=== PATIENT | female | born 1945 | race Caucasian/White ===

== ENCOUNTER 2016-04-22 14:23 | Emergency (ER) | payer MEDICARE, OTHER ==
[~2016-04-22] VITALS: Ht 157.5 cm; Wt 84.1 kg
[~2016-04-22 14:23] MED LIST: ALPR0.254 PO; AMT50T PO; Aspirin-Expunged Drug, Do Not Renew! PO; CHOL5000 PO; DULO60CA42 PO; ESTR0.5T; GLUC-180 PO; HYDR-3797 PO; L.AC1CAP6 PO; LIP40 PO; MULT-1018 PO; OXYC5TAB72 PO; PREG150C PO; PROC10TA PO; PROP60CA2 PO; TOLT4CAP13 PO; TOPI-31 PO
[2016-04-22 14:26] VITALS: BP 77/49; PULSE 78; RESP 16; O2SAT 98
--- NOTE | 2016-04-22 14:39 | ED.REPORT ---
HPI-Abd Pain F 40 and Over Date of Service Apr 22, 2016 ED Provider: Juan Luciano MD Patient is a 70 year old female who presents to the ED complaining of a rectal prolapse that was noted on 04/02/16 during an abdominal surgery. Her and her have tried to put it back in multiple times but it continually comes back out. Associated symptoms include headache. She denies vomiting, diarrhea, fever, or any other symptoms. She has been in contact with [facility] about having surgery for it but she can no longer stand the pain and came to the ED. She has had to take increasing amounts of her pain medication to manage her rectal pain. She has taken 2 Vicodin today with her last dose at 1300. Nursing Notes Stated Complaint: RECTAL PROLAPSE PAIN Chief Complaint: Female Abdominal Pain Nursing Notes Reviewed: Yes Allergies: Coded Allergies: No Known Allergies (Verified , 07/06/04) Scheduled ([Aspirin-Expunged Drug, Do Not Renew!]) 325 MG TABLET 325 MG PO BID Amitriptyline (Amitriptyline) 50 Mg Tab 35-50 MG PO HS Atorvastatin (Lipitor) 40 Mg Tablet 40 MG PO DAILY Cholecalciferol (Vitamin D3) (Vitamin D3) 5,000 Unit Capsule 5,000 UNIT PO DAILY Duloxetine (Cymbalta) 60 Mg Capsule.dr 60 MG PO DAILY Estradiol (Estradiol) 0.5 Mg Tablet 0.5 MG DAILY Glucosamine/MSM/Chondroitin A (Glucosamine Chondroit MSM Tab) 1 Each Tablet 1 EACH PO DAILY L.acidoph & Paracasei,B.lactis (Probiotic) 10 Billion Cell Capsule 1 EACH PO DAILY Multivitamin (Multi Vitamin Daily) 1 Each Tablet 1 EACH PO DAILY Pregabalin (Lyrica) 150 Mg Capsule 150 MG PO BID Propranolol ER (Propranolol ER) 60 Mg Cap.sa.24h 120 MG PO DAILY Tolterodine Tartrate ER (Tolterodine Tartrate ER) 4 Mg Capsule 4 MG PO DAILY Topiramate (Topiramate) 100 Mg Tablet 150 MG PO BID Scheduled PRN Alprazolam (Alprazolam) 0.25 Mg Tablet 0.25 MG PO TID PRN PRN For Anxiety Hydroxyzine Pamoate (HydrOXYzine Pamoate) 25 Mg Capsule 0 MG PO Q4H PRN PRN For Restlessness Prochlorperazine Maleate (Prochlorperazine) 10 Mg Tablet 10 MG PO Q8 PRN PRN For Nausea/Vomiting oxyCODONE (oxyCODONE) 5 Mg Tablet 5-10 MG PO Q3H PRN PRN For Severe Pain General Time Seen by MD: 14:39 Chief Complaint Other (Rectal pain) Hx Obtained From: Patient, Spouse Arrived By: Walk-in Sudden in Onset?: No Recent Healthcare: Previous surgery Past Medical History Past Medical History Seizures, 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 Neurologic: Reports: Headache Physical Exam Vital Signs Vital Signs (First) Date Time Temp Pulse Resp B/P Pulse Ox O2 Delivery O2 Flow Rate FiO2 04/22/16 14:26 35.8 78 16 77/49 98 Room Air Initial VS: Reviewed Head / Eyes: Atraumatic, Normocephalic Skin: Warm, Dry Psychiatric: Mood/affect normal, Behavior normal, Normal thought content General/Constitutional: Awake, Alert, Well developed Respiratory / Chest: No respiratory distress Abdomen: Soft Back: Inspection NL Rectum / Perineum Abnl: Positive: Rectal prolapse present Neurologic: Oriented X3, Speech NL At base-line patient has L arm and leg paralysis Re-Eval/Medical Decision Re-Evaluation/Progress #1: Time of Eval: 14:56 )( Re-Eval Abdomen: Soft Re-Evaluation/Progress Note: Successfully reversed rectal prolapse. Discussed plan for discharge and suggested local surgery follow-up. Patient understands and agrees with plan. All questions addressed at this time. Re-Evaluation/Progress #2: Time of Eval: 15:12 )( Re-Eval Abdomen: Soft Re-Evaluation/Progress Note: Upon getting ready to be discharged from the ED, patient's rectal prolapse reoccurred. Attempted to reverse it but was unable to due to decreased sphincter tone. Suggested local surgery follow-up. Counseled Regarding: Diagnosis, Need for follow-up, When/why to return to ED Discharge & Departure Primary Impression: Rectal prolapse Additional Impression: Headache Headache type: tension-type Headache chronicity pattern: acute headache Intractability: not intractable Qualified Code: G44.209 - Tension-type headache, unspecified, not intractable Disposition: Home Patient Instructions: Acute Headache (ED) Additional Instructions: I was able to put the rectum back inside without too much difficulty. If this happens again he can be manually/digitally inserted. If it remains out and painful, you are welcome to return to the emergency department for further evaluation. I recommend follow-up with surgery for a more definitive solution. You were given an additional 10 mg of oxycodone for your headache. Referrals: Tiera Burnett (PCP) Remberto Woodall MD Scribe Attestation Portions of this note were transcribed by Mone Bradley. I, Dr. Luciano personally performed the history, physical exam and medical decision-making; I reviewed and confirmed the accuracy of the information in the transcribed note. Signed by: Mone Bradley 04/22/16, 9322 copies to: Tiera Burnett; Remberto Woodall MD, Kirk H MD Apr 22, 2016 14:39 MONE BRADLEY Apr 22, 2016 14:55
[2016-04-22 15:28] VITALS: BP 92/57; PULSE 79; RESP 17; O2SAT 98
== END 2016-04-22 15:28 | disposition home or self-care (01) ==
LOC: SED 14:23
DX: K62.3 Rectal prolapse (principal); G44.209 Tension-type headache, unspecified, not intractable; I69.398 Other sequelae of cerebral infarction; Z90.710 Acquired absence of both cervix and uterus; Z79.82 Long term (current) use of aspirin

== ENCOUNTER 2016-04-24 15:39 | Inpatient (IN) | payer MEDICARE, OTHER ==
[2016-04-24] VITALS (8 sets, daily range): BP systolic 79–142; BP diastolic 49–84; PULSE 76–84; RESP 14–20; O2SAT 95–98
[~2016-04-24] VITALS: Ht 154.9 cm; Wt 88.3 kg
[2016-04-24] MEDS ORDERED: AMT25T PO (17:11)
[2016-04-24] MEDS ORDERED: METO25TA99 PO (17:14)
[2016-04-24] MEDS ORDERED: DOCU250C2 PO (17:15)
[2016-04-24] MEDS ORDERED: LISI-571 PO (17:15)
[2016-04-24] MEDS ORDERED: MULT-1065 PO (17:16)
[2016-04-24] MEDS ORDERED: SENN-133 PO (17:19)
[2016-04-24] MEDS ORDERED: PRAS1TAB2 PO (17:22)
--- NOTE | 2016-04-24 17:23 | ED.REPORT ---
HPI-General Illness Date of Service Apr 24, 2016 ED Provider: Gasper Arevalo MD 70 year old female with a history of bladder suspension and vaginal lift in March 15, 2016 presents to the ER accompanied by her due to low blood pressure onset since her surgery in February. reports that patient was admitted to [facility] for sepsis, and an abscess that developed at her surgery site earlier this month. Patient was seen by her surgeon, Dr. Multani, earlier today for rectal prolapse and was referred to the ER due to hypotension. She also reports rectal pain, and transient shortness of breath earlier today, though she is unsure of time of onset and duration. Patient denies chest pain, cough, fever, and chills. She is a vague historian. Nursing Notes Stated Complaint: SOB/LOW BLOOD PRESSURE Chief Complaint: General Complaint Nursing Notes Reviewed: Yes Allergies: Coded Allergies: No Known Allergies (Verified , 04/24/16) Scheduled Amitriptyline (Amitriptyline) 25 Mg Tab 25-35 MG PO HS May take an extra 10 mg on top of 25 mg for sleep Atorvastatin (Lipitor) 40 Mg Tablet 40 MG PO HS Cholecalciferol (Vitamin D3) (Vitamin D3) 5,000 Unit Capsule 5,000 UNIT PO DAILY Docusate Sodium (Docusate Sodium) 250 Mg Capsule 250 MG PO DAILY Duloxetine (Cymbalta) 60 Mg Capsule.dr 60 MG PO BID Estradiol (Estradiol) 0.5 Mg Tablet 0.5 MG DAILY Glucosamine/MSM/Chondroitin A (Glucosamine Chondroit MSM Tab) 1 Each Tablet 1 EACH PO BID L.acidoph & Paracasei,B.lactis (Probiotic) 10 Billion Cell Capsule 1 EACH PO DAILY Lisinopril (Lisinopril) 5 Mg Tablet 5 MG PO DAILY Metoprolol Succinate ER (Metoprolol Succinate ER) 25 Mg Tab.er.24h 25 MG PO BID Multivits-Min/Iron/FA/Lutein (Centrum Silver Women Tablet) 8 Mg Iron-400 Mcg- 300 Mcg Tablet 1 EACH PO DAILY Pregabalin (Lyrica) 150 Mg Capsule 150 MG PO BID Sennosides (Senna) 8.6 Mg Tablet 8.6 MG PO BID Topiramate (Topiramate) 100 Mg Tablet 150 MG PO BID Scheduled PRN Alprazolam (Alprazolam) 0.25 Mg Tablet 0.25 MG PO TID PRN PRN For Anxiety Hydrocodone-Acetaminophen 5-325 mg (Hydrocodone-Acetaminophen 5-325 mg) 1 Each Tablet 1-2 TABLET PO Q8H PRN PRN For Pain Alternate with oxycodone for pain, do not exceed 4 GM Tylenol in 24 hrs Oxycodone (Roxicodone) 5 Mg Tablet 5-10 MG PO Q4H PRN PRN For Pain Alternate with [place] to control pain while keeping Tylenol < 4000 mg/24 hrs Polyethylene Glycol 3350 (Polyethylene Glycol 3350) 17 Gm Powd.pack 17 GM PO DAILY PRN PRN For Constipation Prochlorperazine Maleate (Prochlorperazine) 10 Mg Tablet 10 MG PO Q8 PRN PRN Headache Tiotropium Edison (Spiriva) 18 Mcg Cap.w.dev 18 MCG IH DAILY PRN PRN For Shortness of Breath Miscellaneous Medications Prasterone (Dhea)/Calcium Carb (Dhea 50 mg Tablet) 1 Each Tablet 4 EACH PO General Time Seen by MD: 17:04 Chief Complaint Other (Hypotension) Hx Obtained From: Patient, Spouse Arrived By: Ambulance Sudden in Onset?: No Onset Occurred: More than a week ago... 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 Chronic headaches Reports: Depression Past Surgical History Rotator cuffs- bilat total abdominal hysterectomy Bladder suspension and vaginal lift, March 15, 2016 Smoking History Never Smoker Social History Alcohol Use: "Social" Drug Use: THC Other Social History: Good social support, Review of Systems Full Review of Systems Constitutional: Denies: Chills, Fever Respiratory: Reports: Shortness of breath, Denies: Non-productive cough Cardiovascular: Denies: Chest pain GI: Reports: Rectal pain, Denies: Abdominal pain, Nausea, Vomiting Neurologic: Reports: Dizziness, Lightheaded, Denies: Headache Complete sys rev & neg: except as marked. Physical Exam Vital Signs Vital Signs Date Time Temp Pulse Resp B/P Pulse Ox O2 Delivery O2 Flow Rate FiO2 04/24/16 18:00 83 20 95/49 95 Room Air 04/24/16 17:00 78 18 105/56 04/24/16 16:46 89/70 04/24/16 16:32 16 84/55 96 Room Air 04/24/16 15:53 36.7 76 18 79/51 98 Room Air Initial VS: Reviewed Head / Eyes: Atraumatic, Normocephalic Neck: Supple, Non-tender, Full range of motion Abdomen / GI: Soft, Non-tender, No guarding, No rebound, No distention Extremities: Vascular intact, Neuro intact, No swelling, No tenderness Skin: Warm, Dry, No cyanosis Neurologic: Alert, Oriented, Nonfocal Psychiatric: Mood/affect normal, Behavior normal, Normal thought content General/Constitutional: Awake, Alert, Well developed, Well nourished Interpretation & Diagnostics Lab Results Interpretation Result Diagram: 04/24/16 1645 04/24/16 1645 Test 04/24/16 16:45 04/24/16 18:14 White Blood Count 14.4th/mm3 (3.8-10.1) Red Blood Count 3.53mil/mm3 (3.90-5.20) Hemoglobin 10.6g/dL (12.0-15.6) Hematocrit 32.8% (35.0-46.0) Mean Corpuscular Volume 92.9fL (81-100) Mean Corpuscular Hemoglobin 30.0pg (27.0-35.0) Mean Corpuscular Hemoglobin Concent 32.3% (32.0-37.0) Red Cell Distribution Width 14.6% (12.3-15.4) Platelet Count 424bil/L (150-400) Neutrophils (%) (Auto) 73.5% (40-74) Lymphocytes (%) (Auto) 14.2% (14-46) Monocytes (%) (Auto) 8.2% (4-12) Eosinophils (%) (Auto) 3.4% (0-5) Basophils (%) (Auto) 0.3% (0-3) Hold Purple Top Tube Received (Received) Hold Blue Top Tube Received (Received) Sodium Level 135mEq/L (134-144) Potassium Level 4.7mEq/L (3.5-5.2) Chloride Level 99mEq/L (97-108) Carbon Dioxide Level 22mmol/L (18-29) Blood Urea Nitrogen 30mg/dL (8-27) Creatinine 1.34mg/dL (0.57-1.00) Estimat Glomerular Filtration Rate 56mL/min (>59) Glucose Level 120mg/dL (60-99) Lactic Acid Level 1.9mmol/L (0.4-2.0) Calcium Level 9.1mg/dL (8.5-10.1) Magnesium Level 2.2mg/dL (1.6-2.6) Total Bilirubin 0.2mg/dL (0.0-1.2) Aspartate Amino Transf (AST/SGOT) 15U/L (0-50) Alanine Aminotransferase (ALT/SGPT) 11U/L (0-32) Alkaline Phosphatase 89U/L (25-165) Troponin T 0.014ug/L (0.0-0.011) Total Protein 6.7g/dL (6.4-8.4) Albumin 3.5g/dL (3.4-5.0) Hold Mittie Top Tube Received (Received) Hold [place] Top Tube Received (Received) Urine Color Yellow (YELLOW) Urine Appearance Hazy (CLEAR,HAZY) Urine pH 6.0 (5.0-8.0) Urine Specific Clifford 1.010 (1.003-1.035) Urine Protein 30mg/dL (NEG,TRACE) Urine Glucose (UA) Negativemg/dL (NEGATIVE) Urine Ketones Negativemg/dL (NEGATIVE) Urine Occult Blood Small (NEGATIVE) Urine Nitrite Positive (NEGATIVE) Urine Bilirubin Negative (NEGATIVE) Urine Urobilinogen Normalmg/dL (NORMAL) Urine Leukocyte Esterase Large (NEGATIVE) Urine RBC 0-2/hpf (0-2) Urine WBC 11-50/hpf (0-5) Urine Epithelial Cells None/hpf (NONE-MOD) Urine Crystals None seen (NONE SEEN) Urine Bacteria Few/hpf (NONE-FEW) Urine Hyaline Casts None/lpf (NONE) Urine Granular Casts None seen (NONE SEEN) Urine Waxy Casts None seen (NONE SEEN) Urine Red Blood Cell Casts None seen (NONE SEEN) Urine White Blood Cell Casts None seen (NONE SEEN) Urine Mucus Present (None Seen) Urine Trichomonas None seen (NONE SEEN) Urine Yeast None (NONE SEEN) Urinalysis Comment None Urine Culture Reflexed Indicated ECG Interpretation ECG Interpretation: Sinus rhythm, rate [address] T changes Time: 17:45 Interpreted by: ED physician X-Ray Chest Interpretation Chest Xray Interpretation: IMPRESSION: No acute disease Dictated by: Wilfred Lopez M.D. on 04/24/2016 at 18:45 Approved by: Wilfred Lopez M.D. on 04/24/2016 at 18:46 View: Portable, 1 view Interpretation / Wet Read by: Interpret - Radiologist CT Abd / Pelvis Interpretation IMPRESSION: Overall, no acute abnormality identified. Circumferential rectal wall thickening which could be inflammatory, infectious or related to rectal malignancy. Please correlate clinically, and if needed endoscopy. Adjacent perianal soft tissue swelling/thickening. Appendix not visualized however no suspicious right lower quadrant inflammatory change. Mild circumferential bladder wall thickening, nonspecific. Dictated by: Wilfred Lopez M.D. on 04/24/2016 at 19:26 Approved by: Wilfred Lopez M.D. on 04/24/2016 at 19:34 Study type: Abdominal CT IV contrast Interpretation / Wet Read by: Interpret - Radiologist Re-Eval/Medical Decision Med Decision/Clinical Course 70-year-old female history of CVA with left-sided paralysis, seizure disorder and rectal prolapse presenting sent over by surgeon for hypotension. Patient was seen for rectal prolapse by Dr. Multani in his office today and was noted to have hypotension and was sent over for evaluation. Of note, patient with bladder suspension surgery at outside hospital one month ago and suffered a perioperative abscess near her bladder was admitted to outside hospital for sepsis for 5 days. Today her only complaint is lower abdominal pain. She also reports some shortness of breath earlier and she is unsure how long that lasted or if any associated symptoms. She is a poor historian. No chest pain. Troponins are +0.14. We have no baseline. No signs ischemia on EKG. She does have a UTI. Normal lactate. Blood pressure is reportedly always low and resolved with IV fluids. No signs sepsis at this time. Patient was discussed with cardiology recommends admitting with changing with aspirin, statin, medical management with no heparin drip at this time. Patient will be admitted observation status. She was given Rocephin for her UTI. Admitted to hospitalist service. Source of Hx: Old records Time of Eval: 19:01 Re-Evaluation/Progress Note: Discussed chest X-ray and lab results. Consultation #1: Referral / Consult Name: Aria Morocho MD Consulted With: Cardiology Call Returned at: 20:13 Note: Recommends admission. Consultation #2: Referral / Consult Name: Rosendo Bradley MD Consulted With: Hospitalist Call Returned at: 20:31 Floor Installation Mechanic: Agrees with eval, Agrees with plan, Accepts admit Counseled Regarding: Diagnosis, Lab results, Need for admission Discharge & Departure Primary Impression: Elevated troponin Additional Impressions: UTI (urinary tract infection) Hypotension Disposition: ADMITTED TO HOSPITAL Discharge Condition All VS Reviewed: Yes Condition: Stable Referrals: Alejandra Hewitt PA-C (PCP) Agustín Multani MD Attestation Portions of this note were transcribed by Louis Milian. I, Dr. Arevalo, personally performed the history, physical exam and medical decision-making; I reviewed and confirmed the accuracy of the information in the transcribed note. Signed by: Trina Gee, 04/24/2016 - 20:31 copies to: Alejandra Hewitt PA-C; Agustín Multani MD, Ben M MD Apr 24, 2016 17:23 LOUIS MILIAN Apr 24, 2016 17:26
[2016-04-24] MEDS ORDERED: TIOT18CA3 IH (17:26)
[2016-04-24] MEDS ORDERED: OXYC-474 PO (17:28)
[2016-04-24] MEDS ORDERED: POLY17PO2 PO (17:29)
[2016-04-24] MEDS ORDERED: 0.9% Sodium Chloride 1,000 ML IV ONE (17:31)
[2016-04-24] MEDS ORDERED: HYDR-4003 PO (17:35)
[2016-04-24 17:43] LABS: BASOPHILS % (AUTO) 0.3 % (0-3); EOSINOPHILS % (AUTO) 3.4 % (0-5); MONOCYTES % (AUTO) 8.2 % (4-12); Mean Corpuscular Volume 92.9 fL (81-100); NEUTROPHILS % (AUTO) 73.5 % (40-74); Platelet Count 424 bil/L (150-400)
[2016-04-24 17:53] LABS: TROPONIN T 0.014 ug/L (0.0-0.011)
[2016-04-24 18:04] LABS: Magnesium 2.2 mg/dL (1.6-2.6)
[2016-04-24 18:32] LABS: APPEARANCE,URINE HAZY (CLEAR,HAZY); COLOR,URINE YELLOW (YELLOW); OCCULT BLOOD,URINE SMALL (NEGATIVE); UROBILINOGEN,URINE NORMAL (NORMAL)
--- NOTE | 2016-04-24 18:47 | DRSVH ---
PROCEDURE: X-RAY CHEST ONE VIEW, PORTABLE ([id number]) INDICATIONS: cough TECHNIQUE: One view of the chest was acquired. COMPARISON: [facility], CR, XR CHEST 2VW, 05/06/2015, 16:38. FINDINGS: Surgical changes and devices: None. Lungs and pleura: No pleural effusions or pneumothorax. Lungs are clear. Mediastinum: Mediastinal contours appear normal. Heart size is normal. Bones and chest wall: No suspicious bony lesions. Overlying soft tissues appear unremarkable. Bila teral shoulder joint degeneration IMPRESSION: No acute disease Dictated by: Wilfred Lopez M.D. on 04/24/2016 at 18:45 Approved by: Wilfred Lopez M.D. on 04/24/2016 at 18:46
--- NOTE | 2016-04-24 19:36 | DRSVH ---
PROCEDURE: CT ABDOMEN AND PELVIS WITH CONTRAST ([id number]) INDICATIONS: abd pain h/o bladder abscess TECHNIQUE: After the administration of intravenous contrast, 5 mm thick sections acquired from the diaphragm to the symphysis. 5 mm coronal and sagittal reformats were acquired. For radiation dose reduction, the following was used: automated exposure control, adjustment of mA and/or kV according to patient siciaran e. COMPARISON: [facility], CT, CHEST WITH CONTRAST, 05/01/2014, 13:38. FINDINGS: Image quality: Excellent. ABDOMEN: Lung bases: Lung bases are clear. Heart size is normal. Solid organs: Subcentimeter hypodensity in the dome of the liver is unchanged since 05/01/14 therefore probably benign. Otherwise liver and spleen are normal in size and enhancement. Gallbladder contract ed otherwise unremarkable. Biliary system is non dilated. Pancreas enhances normally. No adrenal n odules. Kidneys demonstrate normal size and enhancement, without hydronephrosis. Peritoneum and bowel: Bowel loops demonstrate normal wall thickness and caliber. No free fluid or a ir. A few scattered incidental colonic diverticula. The rectum is decompressed although distal recta l wall thickening is seen. There is also perianal soft tissue swelling, which is nonspecific and requ ires close clinical correlation. No discrete abscess seen. Appendix not identified however no suspici ous right lower quadrant inflammatory changes. Nodes and vessels: No retroperitoneal or mesenteric adenopathy by size criteria. Aorta and inferior vena cava are normal in size. Miscellaneous: No ventral hernias. PELVIS: Genitourinary: Mild circumferential bladder wall thickening Miscellaneous: No inguinal hernias or adenopathy. Bones: No suspicious bony lesions. No vertebral body compression fractures. IMPRESSION: Overall, no acute abnormality identified. Circumferential rectal wall thickening which could be inflammatory, infectious or related to rectal m alignancy. Please correlate clinically, and if needed endoscopy. Adjacent perianal soft tissue swelli ng/thickening. Appendix not visualized however no suspicious right lower quadrant inflammatory change. Mild circumferential bladder wall thickening, nonspecific. Dictated by: Wilfred Lopez M.D. on 04/24/2016 at 19:26 Approved by: Wilfred Lopez M.D. on 04/24/2016 at 19:34
[2016-04-24] MEDS ORDERED: cefTRIAXone Inj 1,000 MG in Dextrose 5% Minibag Plus 50 ML IV ONE (19:55)
[2016-04-24] MEDS ORDERED: HYDROmorphone 1 mg/mL Inj IVPUSH ONE (20:25)
[2016-04-24] MEDS ORDERED: Alum-Mag Hydrox-Simeth 30 mL Suspension PO PRN (20:35)
[2016-04-24] MEDS ORDERED: Ondansetron 2 mg/mL 2 mL Inj IVPUSH PRN (20:35)
[2016-04-24] MEDS ORDERED: Polyethylene Glycol (PEG) 17 Gm Powder PO PRN ×2 (20:35→22:00)
--- NOTE | 2016-04-24 21:30 | NUR ---
Admission Note Pt admitted to [facility] from ER on stretcher at 2120, alert and orientedx3, c/o severe pain 9/10 at rectum, increase significantly with activities. Denies chest pain/pressure/SOB/NV/fever/chills. BP 121/74 HR83 RR19, UNA135% on RA. Mild decreased lung sounds bilaterally, clear on auscultation. HR regular, no murmur. Tele applied: SR84 per patient monitor. Abdomen distended, tympanic,soft, mild tenderness at right lower quadrant. Severe prolapsed rectum (golf ball size), bright red rectal mucosa showing, no active bleeding noted. 1+ pitting edema bilateral LEs. Dr. Bradley informed about pt severe pain, waiting for pain med order, ice bag applied at rectum, foam dress applied at rectum by charge nurse Loan Mares for protection. Care ongoing. Pt oriented to call light.
[2016-04-24] MEDS ORDERED: Tiotropium 18mcg/Cap 5 Capsule Inhaler Kit INHALATION PRN (22:00)
[2016-04-24] MEDS: ALPRAZolam 0.25 mg Tablet PO PRN (22:40)
[2016-04-24] MEDS: HYDROcodone-APAP 5-325 mg Tablet PO PRN (22:41)
--- NOTE | 2016-04-24 23:10 | PCM.HPMED ---
Subjective Date of Service Apr 24, 2016 Primary Provider: Admitting Physician: Primary Care Physician: Alejandra Hewitt PA-C Attending Physician: Admit Status: From the Emergency Department, 23-Hour Observation, Remote Telemetry Chief Complaint: Hypotension at Dr Multani clinic History of Present Illness: Denisse Villegas is a 70 year old female with recent Uterine surgery, Hypertension, Stroke who presents to [facility] emergency department accompanied by her due to low blood pressure. Patient reports the onset since her surgery in February (admitted to [facility] for sepsis, and an abscess that developed at her Uterine surgery site earlier this month) Patient was seen by her surgeon, Dr. Multani, earlier today for rectal prolapse evaluation and referred to the ER due to hypotension. She also reports rectal pain, and transient shortness of breath earlier today, though she is unsure of time of onset and duration. She appears to be a vague historian. Patient denies chest pain, cough, fever, and chills. She reports she is compliant with her Metoprolol and Lisinopril. Case discussed with Dr Neymar Ba. BP improved with fluids but labs showed elevated troponin 0.014. EKG showed no ischemic changes. Cardiology were consulted who recommended trending troponin. Review of Systems: Pertinent positives as noted in HPI. All other systems were reviewed and are negative Allergies Coded Allergies: No Known Allergies (Verified , 04/24/16) Home Medications From Denisse Maxwell. [id number] 1945 04/24/2016 01:45 PM Page: 03/03 alprazolam 0.25 mg tablet take 1 tablet (0.25MG) by oral route as needed amitriptyline 10 mg tablet take 1 Tablet by ORAL route every evening as needed amitriptyline 25 mg tablet take 1 tablet by oral route every day at bedtime atorvastatin 40 mg tablet take 1 tablet by oral route every day Cymbalta 60 mg Cap TAKE 1 CAPSULE (60MG) BY ORAL ROUTE 2 TIMES EVERY DAY FOR MOOD/PAIN DHEA 50 mg tablet take 4 tablets DICLOFENAC 1% GEL 100GM APPLY 2 GRAMS TOPICALLY FOUR TIMES DAILY TO THE AFFECTED AREA(S) estradiol 0.5 mg tablet TAKE 1 TABLET BY ORAL ROUTE EVERY DAY Olldprwjdso-Zyjhurtogff-GUO Complex 375 mg-500 mg-15 mg-0.5 mg tablet take 1 tablet in the am and 1 tablet at night. lisinopril 5 mg tablet take 1 tablet by oral route every day Lyrica 150 mg capsule take 1 capsule by oral route 2 times every day metoprolol succinate ER 25 mg tablet,extended release 24 hr take 1 tablet by oral route 2 times every day multivitamin Tab take 1 tablet by oral route every day with food prochlorperazine maleate 10 mg tablet TAKE ONE TABLET BY MOUTH THREE TIMES DAILY PRN Senna-S 8.6 mg-50 mg tablet take 1 tablet by oral route daily as needed Spiriva with HandiHaler 18 mcg and inhalation capsules inhale 1 capsule by inhalation route every day topiramate 100 mg tablet take 1 tablet by oral route 2 times every day topiramate 50 mg tablet take 1 tablet by oral route 2 times every day Vitamin D3 5,000 unit tablet take 1 tablet every day PMH Stroke with residual left hemiparesis' Migraine Insomnia Rectal Prolapse Recent Sepsis following Uterine prolapse surgery at [facility] . Surgical History Right rotator cuff repair Total Hysterectomy Knee replacement Cataract extraction Recent Uterine prolapse surgery without a pelvic sling. Complicated with sepsis post op Family History Father had Stroke age 67 Social History Hx Alcohol Use: Yes (socially) Hx Substance Use: Yes (marijuana approx once weekly ) Hx Tobacco Use: Yes Smoking Status: Former Smoker Living Arrangement: with Family Exam Vital Signs Vital Sign - Last Date Time Temp Pulse Resp B/P Pulse Ox O2 Delivery O2 Flow Rate FiO2 04/24/16 18:00 83 20 95/49 95 Room Air 04/24/16 15:53 36.7 Exam General: Alert, Oriented X3, Cooperative, No acute Distress Eyes: PERRLA, Scleral Anicteric Mouth: Mouth Normal, Mucous Membranes Moist/[place] Neck: Supple, no Thyromegaly, trachea central. Chest & Lungs: Clear to auscultation & percussion, No adventitious breath sounds, no crackles, no wheeze Cardiovascular: Normal S1, Normal S2, No Murmurs/Rubs/Gallops, Regular Rate/ Rhythm, (No JVD, no peripheral edema) Pulses: Radial (present and equal), Dorsalis Pedi (present and equal) Abdomen: Soft, Non-tender, Non-distended, Normoactive bowel tones. Musculoskeletal: Unremarkable. Normal range of motion, no swollen or erythematous joints Extremities: No edema, no cyanosis, no clubbing. Skin: No rashes. Warm and dry, no erythematous areas Neurological: Grossly neurologically intact, Normal Speech, Sensation Intact Lymphatic: Lymph nodes Cervical and Axillary not palpable. Lab and Diagnostics Labs Laboratory Tests Test 04/24/16 16:45 04/24/16 18:14 White Blood Count 14.4th/mm3 (3.8-10.1) Red Blood Count 3.53mil/mm3 (3.90-5.20) Hemoglobin 10.6g/dL (12.0-15.6) Hematocrit 32.8% (35.0-46.0) Mean Corpuscular Volume 92.9fL (81-100) Mean Corpuscular Hemoglobin 30.0pg (27.0-35.0) Mean Corpuscular Hemoglobin Concent 32.3% (32.0-37.0) Red Cell Distribution Width 14.6% (12.3-15.4) Platelet Count 424bil/L (150-400) Neutrophils (%) (Auto) 73.5% (40-74) Lymphocytes (%) (Auto) 14.2% (14-46) Monocytes (%) (Auto) 8.2% (4-12) Eosinophils (%) (Auto) 3.4% (0-5) Basophils (%) (Auto) 0.3% (0-3) Hold Purple Top Tube Received (Received) Hold Blue Top Tube Received (Received) Sodium Level 135mEq/L (134-144) Potassium Level 4.7mEq/L (3.5-5.2) Chloride Level 99mEq/L (97-108) Carbon Dioxide Level 22mmol/L (18-29) Blood Urea Nitrogen 30mg/dL (8-27) Creatinine 1.34mg/dL (0.57-1.00) Estimat Glomerular Filtration Rate 56mL/min (>59) Glucose Level 120mg/dL (60-99) Lactic Acid Level 1.9mmol/L (0.4-2.0) Calcium Level 9.1mg/dL (8.5-10.1) Magnesium Level 2.2mg/dL (1.6-2.6) Total Bilirubin 0.2mg/dL (0.0-1.2) Aspartate Amino Transf (AST/SGOT) 15U/L (0-50) Alanine Aminotransferase (ALT/SGPT) 11U/L (0-32) Alkaline Phosphatase 89U/L (25-165) Troponin T 0.014ug/L (0.0-0.011) Total Protein 6.7g/dL (6.4-8.4) Albumin 3.5g/dL (3.4-5.0) Hold [place] Top Tube Received (Received) Hold [place] Top Tube Received (Received) Urine Color Yellow (YELLOW) Urine Appearance Hazy (CLEAR,HAZY) Urine pH 6.0 (5.0-8.0) Urine Specific [place] 1.010 (1.003-1.035) Urine Protein 30mg/dL (NEG,TRACE) Urine Glucose (UA) Negativemg/dL (NEGATIVE) Urine Ketones Negativemg/dL (NEGATIVE) Urine Occult Blood Small (NEGATIVE) Urine Nitrite Positive (NEGATIVE) Urine Bilirubin Negative (NEGATIVE) Urine Urobilinogen Normalmg/dL (NORMAL) Urine Leukocyte Esterase Large (NEGATIVE) Urine RBC 0-2/hpf (0-2) Urine WBC 11-50/hpf (0-5) Urine Epithelial Cells None/hpf (NONE-MOD) Urine Crystals None seen (NONE SEEN) Urine Bacteria Few/hpf (NONE-FEW) Urine Hyaline Casts None/lpf (NONE) Urine Granular Casts None seen (NONE SEEN) Urine Waxy Casts None seen (NONE SEEN) Urine Red Blood Cell Casts None seen (NONE SEEN) Urine White Blood Cell Casts None seen (NONE SEEN) Urine Mucus Present (None Seen) Urine Trichomonas None seen (NONE SEEN) Urine Yeast None (NONE SEEN) Urinalysis Comment None Urine Culture Reflexed Indicated Microbiology 04/24/16 Blood Culture, Received Pending 04/24/16 Urine Culture, Received Pending Result Diagram: 04/24/16 1645 04/24/16 1645 X-Rays, CTs and MRIs CT ABDOMEN AND PELVIS WITH CONTRAST 04/24 IMPRESSION: Overall, no acute abnormality identified. Circumferential rectal wall thickening which could be inflammatory, infectious or related to rectal malignancy. Please correlate clinically, and if needed endoscopy. Adjacent perianal soft tissue swelling/thickening. Appendix not visualized however no suspicious right lower quadrant inflammatory change. Mild circumferential bladder wall thickening, nonspecific. Dictated by: Wilfred Lopez M.D. on 04/24/2016 at 19:26 Approved by: Wilfred Lopez M.D. on 04/24/2016 at 19:34 X-RAY CHEST ONE VIEW, PORTABLE 04/24 IMPRESSION: No acute disease Dictated by: Wilfred Lopez M.D. on 04/24/2016 at 18:45 Approved by: Wilfred Lopez M.D. on 04/24/2016 at 18:46 Assessment & Plan Denisse Villegas is a 70 year old female with recent Uterine surgery, Hypertension, Stroke who presents to [facility] emergency department accompanied by her due to low blood pressure. 1. Hypotension. Acute on Chronic. Present on admission Suspect likely secondary to Hypovolemia given response to IV fluids resuscitations. Adrenal Insufficiency could also be considered. NO evidence of Sepsis or other active infections - holding Metoprolol and Lisinopril tonight - IV fluids continued - consider random cortisol level - encouraged increasing fluid intake at home. 2. Acute Elevated troponin. Present on admission Likely due to demand ischemia due to hypotension. Possible patient could also be having NSTEMI - complete echo tomorrow - trending troponin overnight - no indications for Heparin drip but given Aspirin - consider Cardiology consult tomorrow based on workup results 3. Urinary tract infection. Present on admission Possible could be related to recent Uterine surgery. No symptoms but will be treated given recent procedure - continue Ceftriaxone IV - follow Urine culture and de escalate accordingly 4. Rectal Prolapse. Chronic NO evidence of ischemia from Dr Multani - poor candidate for any surgery at this time due to her recent abdominal surgery - follow up with Dr Multani as outpatient to discuss further surgery options such as sigmoid resection - Acetaminophen as needed for mild pain/fever/headache - Bowel regimen as needed - Antiemetic as needed Patient is admitted under observation status with expected length of stay less than 2 midnights due to severity of presenting symptoms, risk of adverse event, and complexity of treatment plan. . Resuscitation Status: CPR: Attempt Resuscitation Rosendo Bradley MD Apr 24, 2016 20:38
[2016-04-25] VITALS (10 sets, daily range): BP systolic 85–105; BP diastolic 50–66; PULSE 70–98; RESP 14–18; O2SAT 96–99
[2016-04-25] MEDS: DULoxetine 30 mg DR Capsule PO SCH ×3 (00:01→20:30)
[2016-04-25] MEDS: HYDROmorphone 1 mg/mL Inj IVPUSH PRN ×5 (00:09→20:36)
--- NOTE | 2016-04-25 08:29 | NUR ---
Social Work-initial assessment: Data & Assessment: See initial assessment. EMR Reviewed. Pt is a 70 y/o female who was admitted on 04/24/16 for elevated troponin, UTI and hypotension per H&P. Pt's insurance is [employer] and PCP is Alejandra Vega PA-C. Patient does not have a readmission score. SW met with patient to discuss discharge planning, SW role explained and initial assessment complete. Pt is alert and oriented x3. Pt resides at home with spouse in a double level home with three steps to enter where pt remains independent with basic ADLs. Pt uses a 4ww at baseline.. Pt has a history at [facility] and has had HH in the past, but does not know the name. Patient has completed DPOA/ advanced directive and SW spoke with patient's spouse on the phone and requested a copy. Pt has no director long term care care or VA benefits. Patient does not have any SW needs at the current time. SW will continue to follow in case a need arise. Pt's family to provide transport home at discharge. SW provided phone number and plan on white board in room. SW will continue to follow. Plan:Patient to likely discharge home with no needs. Pt's family is supportive. SW will continue to follow. Berto Cazares LMSW, KAMRAN Addendum: 04/27/16 at 0840 by BERTO CAZARES Amended: Links added.
[2016-04-25] MEDS ORDERED: MeTOProlol XL 25 mg ER24 Tablet PO SCH (08:30)
[2016-04-25 08:32] LABS: BASOPHILS % (AUTO) 0.4 % (0-3); EOSINOPHILS % (AUTO) 3.9 % (0-5); MONOCYTES % (AUTO) 9.1 % (4-12); Mean Corpuscular Hemoglobin 29.5 pg (27.0-35.0); Mean Corpuscular Volume 91.4 fL (81-100); NEUTROPHILS % (AUTO) 67.2 % (40-74); Platelet Count 375 bil/L (150-400)
[2016-04-25] MEDS: 0.9% Sodium Chloride 1,000 ML IV SCH ×2 (11:16→22:52)
--- NOTE | 2016-04-25 11:34 | DRSVH ---
[address] [place] [address] Echocardiogram Report Name: CARLOZ ESTRADA LStudy Date: 04/25 Height: 61 in Hospital Exam Location: [facility] Weight: 195 lb Gender: Female BSA: 1.9 m2 : 1945 Age: 70 yrs BP: 91/57 mmHg Reason For Study: SOB Ordering Physician: HOSPITALIST [facility] Performed By: Alia Carr Referring Physician: DR. Bobby LAGUNA Interpretation Summary 1) Normal left ventricular thickness, size, wall motion, and systolic function (EF 60-65%). 2) Normal right ventricular size and function. 3) No significant valvular abnormalities. 4) No prior Echo available for comparison. Procedure: A two-dimensional transthoracic echocardiogram with color flow and Doppler was performed. The study quality was technically adequate. There is no prior echocardiogram noted for this patient. The patient was in normal sinus rhythm during the exam. Left Ventricle: The left ventricle is normal in size, wall thickness, and systolic function without any focal wall motion abnormalities. The ejection fraction is estimated to be 60-65%. Assessment of diastolic parameters indicates a relaxation abnormality of the left ventricle, consistent with normal filling pressures. Right Ventricle: The right ventricle is normal in size and function. Atria: Both atria are normal in size. There is no Doppler evidence for an atrial septal defect. Mitral Valve: The mitral valve leaflets appear normal. There is no evidence of stenosis, fluttering, or prolapse. There is trace mitral regurgitation. Aortic Valve: The aortic valve is trileaflet. The aortic valve opens well. There is trace aortic regurgitation. Tricuspid Valve: The tricuspid valve leaflets are thin and pliable. There is a trace or physiologic amount of tricuspid regurgitation. Right ventricular systolic pressure is estimated to be 22 mmHg plus the clinically estimated CVP which cannot be estimated on this exam. Pulmonic Valve: The pulmonic valve is not well visualized. There is no pulmonic valvular regurgitation. Great Vessels: The aortic root is normal size. The dimensions of the ascending aorta are normal. The pulmonary artery is not well visualized, but is probably normal size. The IVC has a measurement of 17 mm. Unable to evaluate for inspirational collapse. Pericardium/ Pleura There is no pericardial effusion. There has been no significant change since the previous study. MMode/2D Measurements & Calculations LVIDd: 5.0 cm LA dimension: 2.8 cm RA long axis LVOT diam: 2.0 cm LVIDs: 2.6 cm AoV Opening FS: 48.9 % LA A2 area: 14.1 cm RA area EPSS: 1.0 cm LA A4 area: 15.7 cm Ao root diam IVSd: 0.93 cm LA length (vol) : 12.8 cm LVPWd: 0.79 cm RA vol asc Aorta Diam LA vol: 45.2 ml : 32.2 ml LA vol index RA Ao Arch Diam (Prox : 17.2 mm/ Trans): 2.3 cm RVDd major IVC diam: 1.7 cm : 5.9 cm LV spann. diameter/BSA LV sys. diameter/BSA RVD1 (basal) RVD2 (mid): 3.0 cm (cm/m^2): 2.7 (cm/m^2): 1.4 Doppler Measurements & Calculations Ao V2 max MV E max tom MV E/A: 0.89 TR max tom : 102.0 cm/sec : 77.3 cm/sec Med Peak E' Tom : 235.0 cm/sec Ao max PG MV A max tom TR max PG : 4.2 mmHg : 87.3 cm/sec E/E' med: 12.7 : 22.1 mmHg Ao mean PG MV P1/2t: 68.9 msec Lat Peak E' Tom PA V2 max : 85.0 cm/sec LVOT Max Tom E/E' lat: 8.6 PA mean PG : 93.9 cm/sec E/e' average: 10.6 MITALI(I,D): 3.0 cm Pulm A Revs Dur PA Accel Time sev ratio : 0.12 sec MV A dur: 0.13 sec MV dec time MV P1/2t max tom Ao V2 mean LV V1 max PG : 0.23 sec : 75.4 cm/sec Ao V2 VTI: 22.2 cm LV V1 VTI MVA(P1/2t): 3.2 cm2 : 20.2 cm MITALI(V,D): 3.0 cm2 PA V2 mean MITALI indexed to BSA Pulm Maryan Moreiras Dur - MV : 67.4 cm/sec (cm^2/m^2): 1.6 A Dur: 0.01 msec Reading Physician:11:33 AM
--- NOTE | 2016-04-25 13:52 | NUR ---
Case Management: Explained LOPEZ, patient signed. Copy of signed form provided to patient. Original in chart. CPerryRNCCM.
--- NOTE | 2016-04-25 18:03 | NUR ---
Hypotension Patient had a blood pressure of 85/50 at 1720 tonight. Patient was asymptomatic and stated she normally has low blood pressure. Patient has NS running at 100mL/hour. was notified and stated if she is asymptomatic to continue watching for now with no new orders at this time.
--- NOTE | 2016-04-25 20:39 | PCM.PNMED ---
Subjective Date of Service Apr 25, 2016 Subjective Denisse Villegas is a 70 year old female with recent Uterine surgery, Hypertension, Stroke who presents to [facility] emergency department accompanied by her due to low blood pressure. Today she is lying in bed comfortably when I saw her. She denied dizziness, chest pain, palpitations, weakness, nausea, diarrhea, abdominal pain and states that she was feeling well. Exam Vital Signs Vital Sign - Last Date Time Temp Pulse Resp B/P Pulse Ox O2 Delivery O2 Flow Rate FiO2 04/25/16 20:27 87 105/64 04/25/16 17:20 36.9 14 98 Room Air Intake and Output 04/24/16 04/24/16 04/25/16 Cumulative From/Thru 15:00 23:00 07:00 04/24/16 15:53 - 04/25/16 06:38 Intake Total 1050 ml 1100 ml 2150 ml Output Total 400 ml 1450 ml 1850 ml Balance 650 ml -350 ml 300 ml Intake Oral 1100 ml 1100 ml IV Total 1050 ml 1050 ml Output Urine Total 400 ml 1450 ml 1850 ml Exam General: Alert, Oriented X3, Cooperative, No acute Distress Eyes: PERRLA, Scleral Anicteric Mouth: Mouth Normal, Mucous Membranes Moist/[place] Neck: Supple, no Thyromegaly, trachea central. Chest & Lungs: Clear to auscultation & percussion, No adventitious breath sounds, no crackles, no wheeze Cardiovascular: Normal S1, Normal S2, No Murmurs/Rubs/Gallops, Regular Rate/ Rhythm, (No JVD, no peripheral edema) Pulses: Radial (present and equal), Dorsalis Pedi (present and equal) Abdomen: Soft, Non-tender, Non-distended, Normoactive bowel tones. Musculoskeletal: Unremarkable. Normal range of motion, no swollen or erythematous joints Extremities: No edema, no cyanosis, no clubbing. Skin: No rashes. Warm and dry, no erythematous areas Neurological: Grossly neurologically intact, Normal Speech, Sensation Intact IVs and Medications Medications Reviewed: Medications were reviewed in detail Lab and Diagnostics Result Diagram: 04/25/16 0230 04/25/16 0230 X-Rays, CTs and MRIs CT ABDOMEN AND PELVIS WITH CONTRAST 04/24 IMPRESSION: Overall, no acute abnormality identified. Circumferential rectal wall thickening which could be inflammatory, infectious or related to rectal malignancy. Please correlate clinically, and if needed endoscopy. Adjacent perianal soft tissue swelling/thickening. Appendix not visualized however no suspicious right lower quadrant inflammatory change. Mild circumferential bladder wall thickening, nonspecific. Dictated by: Wilfred Lopez M.D. on 04/24/2016 at 19:26 Approved by: Wilfred Lopez M.D. on 04/24/2016 at 19:34 X-RAY CHEST ONE VIEW, PORTABLE 04/24 IMPRESSION: No acute disease Dictated by: Wilfred Lopez M.D. on 04/24/2016 at 18:45 Approved by: Wilfred Lopez M.D. on 04/24/2016 at 18:46 04/25/16 Echocardiogram Report Interpretation Summary 1) Normal left ventricular thickness, size, wall motion, and systolic function (EF 60-65%). 2) Normal right ventricular size and function. 3) No significant valvular abnormalities. 4) No prior Echo available for comparison. Reading Physician:11:33 AM Assessment & Plan Denisse Villegas is a 70 year old female with recent Uterine surgery, Hypertension, Stroke who presents to [facility] emergency department accompanied by her due to low blood pressure. 1. Hypotension. Acute on Chronic. Present on admission, ongoing Suspect likely secondary to Hypovolemia given response to IV fluids resuscitations. Adrenal Insufficiency could also be considered. NO evidence of Sepsis or other active infections - holding Metoprolol and Lisinopril - IV fluids continued, consider fluid bolus - consider random cortisol level - encouraged increasing fluid intake at home. 2. Acute Elevated troponin. Present on admission, resolved Likely due to demand ischemia due to hypotension. Possible patient could also be having NSTEMI - complete echo 04/25/16 was unremarkable - Repeat troponins x2 negative - Aspirin 3. Urinary tract infection. Present on admission, acute Possible could be related to recent Uterine surgery. No symptoms but will be treated given recent procedure - continued Ceftriaxone IV - follow Urine culture and de escalate accordingly 4. Rectal Prolapse, present on admission Chronic NO evidence of ischemia from Dr Multani - poor candidate for any surgery at this time due to her recent abdominal surgery - follow up with Dr Multani as outpatient to discuss further surgery options such as sigmoid resection - Acetaminophen as needed for mild pain/fever/headache - Bowel regimen as needed - Antiemetic as needed Patient is admitted under observation status with expected length of stay less than 2 midnights due to severity of presenting symptoms, risk of adverse event, and complexity of treatment plan. . VTE Mechanical Devices: Intermittant Pneumatic CD Resuscitation Status: CPR: Attempt Resuscitation Attending Statement The patient was seen and examined together with Dr. Hernandez on 04/25/16 and I agree with the history, exam and plan as outlined in the note above. Meggan Hernandez DO Apr 25, 2016 20:39 Lacie Corbett DO Apr 26, 2016 10:27
[2016-04-25] MEDS ORDERED: cefTRIAXone Inj 2,000 MG in Dextrose 5% Minibag Plus 50 ML IV SCH (21:00)
[2016-04-26] VITALS (9 sets, daily range): BP systolic 94–118; BP diastolic 54–73; PULSE 84–93; RESP 11–18; O2SAT 96–98
[2016-04-26] MEDS: HYDROmorphone 1 mg/mL Inj IVPUSH PRN ×5 (00:37→19:50)
[2016-04-26 06:18] LABS: BASOPHILS % (AUTO) 0.6 % (0-3); MONOCYTES % (AUTO) 8.8 % (4-12); Mean Corpuscular Hemoglobin 29.4 pg (27.0-35.0); Mean Corpuscular Volume 92.9 fL (81-100); NEUTROPHILS % (AUTO) 56.6 % (40-74); Platelet Count 372 bil/L (150-400)
--- NOTE | 2016-04-26 06:26 | NUR ---
Blood pressures: Blood pressures stable throughout the night with systolic pressures in the mid 90s to low 100s.
--- NOTE | 2016-04-26 06:27 | NUR ---
Rectal Pain/BM: Pt was in excruciating pain after having a bowel movement last night with a prolapsed rectum. Pt initially medicated with Roxicodone and then was given 1 mg of IV Dilaudid for unrelieved pain. Pain was relieved, however, the pt did become very confused during the night. Confusion has resolved this morning and no complaints of further pain at this point time.
[2016-04-26] MEDS: 0.9% Sodium Chloride 1,000 ML IV SCH (06:55)
[2016-04-26] MEDS: DULoxetine 30 mg DR Capsule PO SCH ×2 (08:58→19:49)
[2016-04-26] MEDS ORDERED: 0.9% Sodium Chloride 1,000 ML IV ONE (10:05)
[2016-04-26] MEDS: Piperacillin-Tazo 3.375 Gm Inj 3.375 GM in Dextrose 5% Minibag Plus 50 ML IV SCH ×2 (12:16→18:18)
--- NOTE | 2016-04-26 14:03 | NUR ---
BM/Pain/Mentation: Pt has had multiple BMs this shift, c/o excruciating pain with all activities. Dilaudid and Oxycodone PRN for pain with some relief provided. Pt's rectum is significantly prolapsed, bright red mucosal tissues exposed, MD aware and requesting consult from surgery. Pt is intermittently confused, oriented to self mostly and occasionally to place. IV antibiotics changed to cover for Pseudomonas that was grown from UA. Encouraging pt to move as much as tolerated, semi flaccid L arm on pillows, care ongoing.
--- NOTE | 2016-04-26 16:05 | PROG NOTE ---
[address] [address] PROGRESS NOTE PATIENT: CARLOZ ESTRADA : 1945 MR#: [id number] ADMIT: 04/24/2016 JOB ID: [id number] DATE: 04/26/2016 SUBJECTIVE: I was asked by Dr. Hernandez to see the patient in followup for her rectal prolapse. The patient was recently seen by my colleague, Dr. Multani, as an outpatient for this very same problem. This was on April 24. Apparently, the patient underwent a repair of a uterine prolapse in February of 2016 and that operation was complicated by pelvic sepsis and was treated with a percutaneous drain and antibiotics. This was reportedly done down at [facility]. She has since come back to [facility] and has developed rectal prolapse. When Dr. Multani saw her, he noted that she was quite ill appearing and hypotensive and then had her admitted to the hospitalist service. Here she has been treated for slightly elevated troponins and hypertension. I was asked to come and see her today because of the large rectal prolapse and the patient's complaint of pain. Today she is afebrile. This afternoon she is hemodynamically normal with a blood pressure 102/66. She is satting 97% on room air with a respiratory rate of 18 breaths per minute and a heart rate of 93 beats per minute. She is clearly uncomfortable. I inspected her anus. She has about 3-4 cm of rectal prolapse. The rectal mucosa is red and glistening. There is a very small amount of blood-tinged mucus. The prolapsed rectum is soft. I was quite easily able to reduce this though the patient's coughing does cause recurrent prolapse. ASSESSMENT AND PLAN: This is a 70-year-old female with a recent history of pelvic operation complicated by pelvic sepsis with subsequent development of rectal prolapse. I agree with Dr. Multani assessment that now is not the time to tackle this rectal prolapse. Once her medical issues are resolved, she can either followup with Dr. Multani as scheduled or followup again at [facility] with one of the colorectal surgeons, Dr. Chamberlain, who apparently the patient has already seen. Feel free to call me if there are any questions.
[2016-04-26] MEDS: HYDROcodone-APAP 5-325 mg Tablet PO PRN ×2 (17:07→22:00)
--- NOTE | 2016-04-26 17:58 | NUR ---
Case Management: COS to IP completed. IMM explained to patient and Benjie at 1720, all questions answered. Benjie signed IMM, original placed in chart, copy given to Benjie. Brandy Lebron RN
--- NOTE | 2016-04-26 18:47 | PCM.PNMED ---
Subjective Date of Service Apr 26, 2016 Subjective Denisse Villegas is a 70 year old female with recent Uterine surgery, Hypertension, Stroke who presented to [facility] emergency department accompanied by her due to low blood pressure. This morning she stated that she doesn't remember why she came to the hospital. She says that her rectal prolapse is causing her a lot of pain in her rectum. is at bedside and would like her to have PT evaluation because she has been in bed for too long. Exam Vital Signs Vital Sign - Last Date Time Temp Pulse Resp B/P Pulse Ox O2 Delivery O2 Flow Rate FiO2 04/26/16 16:44 36.4 89 17 118/72 97 Room Air Intake and Output 04/25/16 04/25/16 04/26/16 Cumulative From/Thru 15:00 23:00 07:00 04/24/16 15:53 - 04/26/16 05:52 Intake Total 2097 ml 1412 ml 5659 ml Output Total 1550 ml 775 ml 4175 ml Balance 547 ml 637 ml 1484 ml Intake Oral 1436 ml 350 ml 2886 ml IV Total 661 ml 1062 ml 2773 ml Output Urine Total 1550 ml 775 ml 4175 ml # Bowel Movements 0 3 3 Exam General: Alert, Oriented x2, Cooperative, No acute Distress Eyes: PERRLA, Scleral Anicteric Mouth: Mouth Normal, Mucous Membranes Moist/[place] Neck: Supple, no Thyromegaly, trachea central. Chest & Lungs: Clear to auscultation & percussion, No adventitious breath sounds, no crackles, no wheeze Cardiovascular: Normal S1, Normal S2, No Murmurs/Rubs/Gallops, Regular Rate/ Rhythm, (No JVD, no peripheral edema) Pulses: Radial (present and equal), Dorsalis Pedi (present and equal) GI: Soft, Non-tender, Non-distended, Normoactive bowel tones. Rectal prolapse 4- 5 cm, red, small amount of mucus Musculoskeletal: No swollen or erythematous joints Extremities: No edema, no cyanosis, no clubbing. Skin: No rashes. Warm and dry, no erythematous areas Neurological: Grossly neurologically intact, Normal Speech, Sensation Intact IVs and Medications Medications Reviewed: Medications were reviewed in detail Lab and Diagnostics Result Diagram: 04/26/1653004/26/16530 X-Rays, CTs and MRIs CT ABDOMEN AND PELVIS WITH CONTRAST 04/24 IMPRESSION: Overall, no acute abnormality identified. Circumferential rectal wall thickening which could be inflammatory, infectious or related to rectal malignancy. Please correlate clinically, and if needed endoscopy. Adjacent perianal soft tissue swelling/thickening. Appendix not visualized however no suspicious right lower quadrant inflammatory change. Mild circumferential bladder wall thickening, nonspecific. Dictated by: Wilfred Lopez M.D. on 04/24/2016 at 19:26 Approved by: Wilfred Lopez M.D. on 04/24/2016 at 19:34 X-RAY CHEST ONE VIEW, PORTABLE 04/24 IMPRESSION: No acute disease Dictated by: Wilfred Lopez M.D. on 04/24/2016 at 18:45 Approved by: Wilfred Lopez M.D. on 04/24/2016 at 18:46 04/25/16 Echocardiogram Report Interpretation Summary 1) Normal left ventricular thickness, size, wall motion, and systolic function (EF 60-65%). 2) Normal right ventricular size and function. 3) No significant valvular abnormalities. 4) No prior Echo available for comparison. Reading Physician:11:33 AM Assessment & Plan Denisse Villegas is a 70 year old female with recent Uterine surgery, Hypertension, Stroke who presents to [facility] emergency department accompanied by her due to low blood pressure. 1. Hypotension. Acute on Chronic. Present on admission, ongoing Suspect likely secondary to Hypovolemia given response to IV fluids resuscitations. Adrenal Insufficiency could also be considered. NO evidence of Sepsis or other active infections - holding Metoprolol and Lisinopril - IV fluids continued, fluid boluses as needed - consider random cortisol level - encouraged increasing fluid intake at home. 2. Acute Elevated troponin. Present on admission, resolved Likely due to demand ischemia due to hypotension. - complete echo 04/25/16 was unremarkable - Repeat troponins x2 negative - Aspirin 3. Urinary tract infection, Pseudomonias. Present on admission, acute - Sensitvities pending - Discontinued Ceftriaxone IV and started Zosyn 4. Acute kidney injury, present on admission. Resolved 5. Rectal Prolapse, present on admission Chronic - NO evidence of ischemia from Dr Multani who said poor candidate for any surgery at this time due to her recent abdominal surgery - Surgical consultation pending - follow up with Dr Multani as outpatient to discuss further surgery options such as sigmoid resection - Acetaminophen as needed for mild pain/fever/headache - Bowel regimen as needed - Antiemetic as needed Patient is admitted under observation status with expected length of stay less than 2 midnights due to severity of presenting symptoms, risk of adverse event, and complexity of treatment plan. . VTE Mechanical Devices: Intermittant Pneumatic CD Resuscitation Status: CPR: Attempt Resuscitation Attending Statement The patient was seen and examined together with Dr. Hernandez on 04/26/16 and I agree with the history, exam and plan as outlined in the note above. Meggan Hernandez DO Apr 26, 2016 18:47 Lacie Corbett DO Apr 28, 2016 14:53
[2016-04-26] MEDS: ALPRAZolam 0.25 mg Tablet PO PRN (23:08)
[2016-04-27] VITALS (9 sets, daily range): BP systolic 92–151; BP diastolic 56–85; PULSE 69–96; RESP 16–18; O2SAT 96–98
[2016-04-27] MEDS: Piperacillin-Tazo 3.375 Gm Inj 3.375 GM in Dextrose 5% Minibag Plus 50 ML IV SCH ×2 (00:32→08:27)
--- NOTE | 2016-04-27 05:14 | NUR ---
pain/rectal prolapse: pt medicated with prn medications, able to report some relief. pt medicated with prn xanax and pt able to relax and get some sleep. CPOX in place pt remained on RA sats mid to high 90's. Rectal prolapsed appeared to be larger than previously noted by day shift, night resident notified, and aware. will continue to monitor pt.
[2016-04-27] MEDS: HYDROmorphone 1 mg/mL Inj IVPUSH PRN ×3 (05:33→20:55)
[2016-04-27 07:01] LABS: BASOPHILS % (AUTO) 0.9 % (0-3); EOSINOPHILS % (AUTO) 8.2 % (0-5); MONOCYTES % (AUTO) 10.7 % (4-12); Mean Corpuscular Hemoglobin 29.2 pg (27.0-35.0); Mean Corpuscular Volume 92.8 fL (81-100); NEUTROPHILS % (AUTO) 54.1 % (40-74); Platelet Count 380 bil/L (150-400)
[2016-04-27] MEDS: DULoxetine 30 mg DR Capsule PO SCH ×2 (08:27→19:59)
[2016-04-27] MEDS: HYDROcodone-APAP 5-325 mg Tablet PO PRN (10:42)
--- NOTE | 2016-04-27 11:42 | NUR ---
Social Work: Readiness for d/c Data: Pt is on day 3 of hospitalization. EMR reviewed. Pt discussed in rounds. MD states pt likely to d/c tomorrow. No d/c planning needs anticipated at this time. HUC OB will continue to follow if needs arise. Assessment: Pt who is independent at baseline. Plan: Pt will d/c home via POV when medically stable, likely tomorrow. No d/c planning needs anticipated at this time. HUC OB will continue to follow if needs arise. JESU Tomlinson
[2016-04-27] MEDS ORDERED: Lidocaine Topical 2% 30 mL Jelly ONE (11:53)
--- NOTE | 2016-04-27 16:08 | NUR ---
Rectal Prolapse Had to reduce grapefruit sized rectal prolapse today. Premedicated pt with pain meds, applied lidocaine jelly on the prolapsed rectum, quickly inserted the prolapse, applied Vaseline gauze, Kerlix roll and foam tape for compression across her butt cheeks. Pt states that it has felt better then it has in a few weeks.
--- NOTE | 2016-04-27 17:02 | PCM.PNMED ---
Subjective Date of Service Apr 27, 2016 Subjective Denisse Villegas is a 70 year old female with recent Uterine surgery, Hypertension, Stroke who presented to [facility] emergency department accompanied by her due to low blood pressure. Was found to have a UTI and a rectal prolapse. Patient continues to have severe pain with her rectal prolapse and needed to use all her pain medication available this morning. She was able to get up to the sink with physical therapy but states that now she is paying for it. She is afraid to go home because she cannot take care of herself and her cannot take care of her. She is not able to reduce the prolapse herself and her was taught but he cannot either. Exam Vital Signs Vital Sign - Last Date Time Temp Pulse Resp B/P Pulse Ox O2 Delivery O2 Flow Rate FiO2 04/27/16 14:30 37.3 96 18 151/60 Room Air 04/27/16 07:30 97 Intake and Output 04/26/16 04/26/16 04/27/16 Cumulative From/Thru 15:00 23:00 07:00 04/24/16 15:53 - 04/27/16 06:20 Intake Total 2575 ml 350 ml 8584 ml Output Total 1800 ml 1000 ml 6975 ml Balance 775 ml -650 ml 1609 ml Intake Oral 1200 ml 350 ml 4436 ml IV Total 1375 ml 4148 ml Output Urine Total 1800 ml 1000 ml 6975 ml # Bowel Movements 2 5 Exam General: Alert, Oriented x2, Cooperative, moderate distress from pain, laying in bed and not wanting to move positions Eyes: PERRLA, Scleral Anicteric Mouth: Mucous Membranes Moist/[place] Neck: Supple, no thyromegaly Chest & Lungs: Clear to auscultation & percussion, No adventitious breath sounds, no crackles, no wheeze Cardiovascular: Normal S1, Normal S2, No Murmurs/Rubs/Gallops, Regular Rate/ Rhythm, (No JVD, no peripheral edema) Pulses: Radial (present and equal), Dorsalis Pedi (present and equal) GI: Soft, Non-tender, Non-distended, Normoactive bowel tones. Rectal prolapse larger today on exam - 6 cm, red, moist with a small amount of mucus Musculoskeletal: No swollen or erythematous joints Extremities: No edema, no cyanosis, no clubbing. Skin: No rashes. Warm and dry, no erythematous areas Neurological: Grossly neurologically intact, Normal Speech, Sensation Intact IVs and Medications Medications Reviewed: Medications were reviewed in detail Lab and Diagnostics Result Diagram: 04/27/1662404/27/16624 X-Rays, CTs and MRIs CT ABDOMEN AND PELVIS WITH CONTRAST 04/24 IMPRESSION: Overall, no acute abnormality identified. Circumferential rectal wall thickening which could be inflammatory, infectious or related to rectal malignancy. Please correlate clinically, and if needed endoscopy. Adjacent perianal soft tissue swelling/thickening. Appendix not visualized however no suspicious right lower quadrant inflammatory change. Mild circumferential bladder wall thickening, nonspecific. Dictated by: Wilfred Lopez M.D. on 04/24/2016 at 19:26 Approved by: Wilfred Lopez M.D. on 04/24/2016 at 19:34 X-RAY CHEST ONE VIEW, PORTABLE 04/24 IMPRESSION: No acute disease Dictated by: Wilfred Lopez M.D. on 04/24/2016 at 18:45 Approved by: Wilfred Lopez M.D. on 04/24/2016 at 18:46 04/25/16 Echocardiogram Report Interpretation Summary 1) Normal left ventricular thickness, size, wall motion, and systolic function (EF 60-65%). 2) Normal right ventricular size and function. 3) No significant valvular abnormalities. 4) No prior Echo available for comparison. Reading Physician:11:33 AM Assessment & Plan Denisse Villegas is a 70 year old female with recent Uterine surgery, Hypertension, Stroke who presents to [facility] emergency department accompanied by her due to low blood pressure. 1. Urinary tract infection, Pseudomonias. Present on admission, acute - Sensitvities back. Started levoquin and cefepime 04/27/16 per susceptibilities 2. Rectal Prolapse, present on admission Chronic - NO evidence of ischemia from Dr Multani who said poor candidate for any surgery at this time due to her recent abdominal surgery - Dr. Raymond, General Surgeon agreed that no surgery at this time but follow up in the outpatient setting since there is no ischemia present - follow up with Dr Multani as outpatient to discuss further surgery options such as sigmoid resection 3. Hypotension. Acute on Chronic. Present on admission, resolved Suspect likely secondary to Hypovolemia given response to IV fluid resuscitations. Adrenal Insufficiency could also be considered. NO evidence of Sepsis - holding Metoprolol and Lisinopril - IV fluids continued, fluid boluses as needed - encouraged increasing fluid intake at home. 4. Acute Elevated troponin. Present on admission, resolved Likely due to demand ischemia due to hypotension. - complete echo 04/25/16 was unremarkable (see report above) - Repeat troponins x2 negative - Aspirin 4. Acute kidney injury, present on admission. Resolved - Likely hypovolemia - Acetaminophen as needed for mild pain/fever/headache - Bowel regimen as needed - Antiemetic as needed Patient is admitted under observation status with expected length of stay less than 2 midnights due to severity of presenting symptoms, risk of adverse event, and complexity of treatment plan. . Expect discharge > 2 days Disposition: At this time the patient's pain with the rectal prolapse is most likely secondary to the pseudomonas UTI. It is thought that as the patient's UTI is treated that the pain from the rectal prolapse will decrease. At this time there are no signs of ischemic changes to the rectum or any of the contents that are prolapsing. We will continue to monitor for any ischemic changes. VTE Prophylaxis: Sub-Q Heparin (Unfractionated) VTE Mechanical Devices: Intermittant Pneumatic CD Resuscitation Status: CPR: Attempt Resuscitation Attending Statement The patient was seen and examined together with Dr. Hernandez on 04/27/16 and I have added additional information to the note above. Meggan Hernandez DO Apr 27, 2016 16:14 Lacie Corbett DO Apr 28, 2016 14:56
[2016-04-27] MEDS: Heparin 5,000 Unit/mL Inj SUBQ SCH (17:46)
[2016-04-27] MEDS: levoFLOXacin 750 mg Tablet PO SCH (18:01)
[2016-04-27] MEDS: CEFEPIME IV SCH (19:59)
[2016-04-27] MEDS: DEXTROSE 5% IV SCH (19:59)
[2016-04-27] MEDS: ALPRAZolam 0.25 mg Tablet PO PRN (20:55)
[2016-04-28] VITALS (7 sets, daily range): BP systolic 105–142; BP diastolic 65–90; PULSE 82–94; RESP 18–22; O2SAT 94–99
[2016-04-28] MEDS: Heparin 5,000 Unit/mL Inj SUBQ SCH ×3 (00:36→17:04)
[2016-04-28 06:55] LABS: BASOPHILS % (AUTO) 0.5 % (0-3); MONOCYTES % (AUTO) 8.1 % (4-12); Mean Corpuscular Hemoglobin 29.2 pg (27.0-35.0); Mean Corpuscular Volume 93.2 fL (81-100); NEUTROPHILS % (AUTO) 54.1 % (40-74); Platelet Count 398 bil/L (150-400)
[2016-04-28] MEDS: DULoxetine 30 mg DR Capsule PO SCH ×2 (08:19→21:58)
[2016-04-28] MEDS: DEXTROSE 5% IV SCH ×2 (08:21→22:00)
[2016-04-28] MEDS: CEFEPIME IV SCH ×2 (08:21→22:00)
[2016-04-28] MEDS: levoFLOXacin 750 mg Tablet PO SCH (09:21)
--- NOTE | 2016-04-28 09:26 | NUR ---
Social Work: Continued d/c planning Data: Pt is on day 4 of hospitalization. EMR reviewed. PT recommending SNF for pt, pt walking 5 feet. SNF choice list provided. Pt states first choice is [facility] and second choice is [facility]. PYRIDINE OPERATOR requested UR specialist refer pt. PYRIDINE OPERATOR will continue to follow. Assessment: Pt who is independent at baseline. Plan: Pt will likely d/c to SNF, first choice is [facility] and second choice is [facility]. PYRIDINE OPERATOR will continue to follow. JESU Tomlinson
--- NOTE | 2016-04-28 09:26 | NUR ---
ELLEN signed JESU Tomlinson
--- NOTE | 2016-04-28 10:15 | NUR ---
BM/rectal prolapse Pt reports has to used BSC, 2 per max assist up. Several medium firm formed stools passed from prolapsed rectum. Pt assisted back to bed, placed on L side, Pain meds previously give, applied lidocaine jelly on the prolapsed rectum, gently reduced grapefruit sized rectal prolapse. Adaptic Vaseline gauze applied, small Kerlix roll, abd pad to hold in place and foam tape applied to compress buttocks. Pt tolerated well. Will continue to monitor.
--- NOTE | 2016-04-28 10:32 | NUR ---
Gave access and faxed facesheet to [facility] and [facility] per [facility] [employer]INFRAME SYSTEMS PROGRAMMER
[2016-04-28] MEDS: HYDROmorphone 1 mg/mL Inj IVPUSH PRN ×4 (11:00→23:13)
[2016-04-28] MEDS: HYDROcodone-APAP 5-325 mg Tablet PO PRN (12:49)
--- NOTE | 2016-04-28 19:39 | PCM.PNMED ---
Subjective Date of Service Apr 28, 2016 Subjective Denisse Villegas is a 70 year old female with recent Uterine surgery, Hypertension, Stroke who presents to [facility] emergency department accompanied by her due to low blood pressure and was found to have a UTI. This morning the patient states that she is feeling much better. Her rectum has not prolapsed over night. She was able to have a BM without excessive pain. She is using tape and a roll of Kerlix to keep her rectum from prolapsing. Denies nausea, vomiting. Exam Vital Signs Vital Sign - Last Date Time Temp Pulse Resp B/P Pulse Ox O2 Delivery O2 Flow Rate FiO2 04/28/16 09:02 37.1 89 22 109/70 99 Room Air Intake and Output 04/27/16 04/27/16 04/28/16 Cumulative From/Thru 15:00 23:00 07:00 04/24/16 15:53 - 04/28/16 06:42 Intake Total 765 ml 320 ml 9669 ml Output Total 2000 ml 1800 ml 29233 ml Balance -1235 ml -1480 ml -1106 ml Intake Oral 400 ml 320 ml 5156 ml IV Total 365 ml 4513 ml Output Urine Total 2000 ml 1800 ml 06797 ml # Bowel Movements 1 6 Exam General: Alert, Oriented x2, Cooperative, appears comfortable Eyes: PERRLA, Scleral Anicteric Mouth: Mucous Membranes Moist/[place] Neck: Supple, no thyromegaly Chest & Lungs: Clear to auscultation & percussion, No adventitious breath sounds, no crackles, no wheeze Cardiovascular: Normal S1, Normal S2, No Murmurs/Rubs/Gallops, Regular Rate/ Rhythm, (No JVD, no peripheral edema) Pulses: Radial (present and equal), Dorsalis Pedi (present and equal) GI: Soft, Non-tender, Non-distended, Normoactive bowel tones. Musculoskeletal: No swollen or erythematous joints Extremities: No edema, no cyanosis, no clubbing. Skin: No rashes. Warm and dry, no erythematous areas Neurological: Grossly neurologically intact, Normal Speech IVs and Medications Medications Reviewed: Medications were reviewed in detail Lab and Diagnostics Result Diagram: 04/28/16 0645 04/28/16 0645 Microbiology Microbiology 04/24/16 Blood Culture - Preliminary, Resulted No growth at 2 days; culture examined... 04/24/16 Urine Culture - Final, Complete Pseudomonas Aeruginosa X-Rays, CTs and MRIs CT ABDOMEN AND PELVIS WITH CONTRAST 04/24 IMPRESSION: Overall, no acute abnormality identified. Circumferential rectal wall thickening which could be inflammatory, infectious or related to rectal malignancy. Please correlate clinically, and if needed endoscopy. Adjacent perianal soft tissue swelling/thickening. Appendix not visualized however no suspicious right lower quadrant inflammatory change. Mild circumferential bladder wall thickening, nonspecific. Dictated by: Wilfred Lopez M.D. on 04/24/2016 at 19:26 Approved by: Wilfred Lopez M.D. on 04/24/2016 at 19:34 X-RAY CHEST ONE VIEW, PORTABLE 04/24 IMPRESSION: No acute disease Dictated by: Wilfred Lopez M.D. on 04/24/2016 at 18:45 Approved by: Wilfred Lopez M.D. on 04/24/2016 at 18:46 04/25/16 Echocardiogram Report Interpretation Summary 1) Normal left ventricular thickness, size, wall motion, and systolic function (EF 60-65%). 2) Normal right ventricular size and function. 3) No significant valvular abnormalities. 4) No prior Echo available for comparison. Reading Physician:11:33 AM Assessment & Plan Denisse Villegas is a 70 year old female with recent Uterine surgery, Hypertension, Stroke who presents to [facility] emergency department accompanied by her due to low blood pressure. Found to have UTI. 1. Urinary tract infection, Pseudomonias. Present on admission, acute - Sensitvities back. Patient is on cefepime and levofloxacin 04/28/16 per sensitivities. - Expect her to need IV antibiotics for several days - Infectious disease doctor [place] out of the country. Will consider consulting him when he returns. 2. Rectal Prolapse, present on admission Chronic - NO evidence of ischemia from Dr Multani who said poor candidate for any surgery at this time due to her recent abdominal surgery. Pt can follow up with him after hospitalization. - Dr. Raymond, General Surgeon agreed that no surgery at this time but follow up in the outpatient setting since there is no ischemia present - Pain has improved quite a bit with the treatment of the UTI. - Discharge with stool softener. 3. Hypotension. Acute on Chronic. Present on admission, resolved Suspect likely secondary to Hypovolemia given response to IV fluid resuscitations. Adrenal Insufficiency could also be considered. NO evidence of Sepsis - holding Metoprolol and Lisinopril and her blood pressures have normalized - IV fluid boluses as needed - encouraged increasing fluid intake at home. 4. Acute Elevated troponin. Present on admission, resolved Likely due to demand ischemia due to hypotension. - complete echo 04/25/16 was unremarkable (see report above) - Repeat troponins x2 negative - Aspirin 4. Acute kidney injury, present on admission. Resolved - Likely hypovolemia - Acetaminophen as needed for mild pain/fever/headache - Bowel regimen as needed - Antiemetic as needed VTE Prophylaxis: Sub-Q Heparin (Unfractionated) VTE Mechanical Devices: Intermittant Pneumatic CD Resuscitation Status: CPR: Attempt Resuscitation Attending Statement The patient was seen and examined together with Dr. Hernandez on 04/28/16 and I have added additional information to the note above. Meggan Hernandez DO Apr 28, 2016 09:46 Lacie Corbett DO Apr 30, 2016 15:27 Meggan Hernandez DO Apr 28, 2016 09:46
[2016-04-29] VITALS (8 sets, daily range): BP systolic 100–138; BP diastolic 64–86; PULSE 72–95; RESP 20–22; O2SAT 94–97
[2016-04-29] MEDS ORDERED: Lidocaine 2% 6mL Topical Jelly TOPICAL ONE ×2 (00:20→03:25)
[2016-04-29] MEDS: Heparin 5,000 Unit/mL Inj SUBQ SCH ×3 (00:30→16:55)
[2016-04-29] MEDS: ALPRAZolam 0.25 mg Tablet PO PRN ×2 (00:58→21:03)
[2016-04-29] MEDS: HYDROmorphone 1 mg/mL Inj IVPUSH PRN ×4 (05:35→21:04)
--- NOTE | 2016-04-29 06:12 | NUR ---
Rectal Prolapse Unable to reduce grapefruit sized rectal prolapse during Noc shift. Premedicated pt with dilaudid, applied lidocaine jelly on the prolapsed rectum, Unable to reduce grapefruit sized rectal prolapse x 2 during Noc shift. MD goff. Will continue to monitor.
[2016-04-29 06:25] LABS: BASOPHILS % (AUTO) 0.6 % (0-3); EOSINOPHILS % (AUTO) 4.4 % (0-5); MONOCYTES % (AUTO) 7.8 % (4-12); Mean Corpuscular Hemoglobin 29.4 pg (27.0-35.0); Mean Corpuscular Volume 93.2 fL (81-100); NEUTROPHILS % (AUTO) 68.7 % (40-74); Platelet Count 426 bil/L (150-400)
[2016-04-29] MEDS: DEXTROSE 5% IV SCH ×2 (10:05→20:57)
[2016-04-29] MEDS: CEFEPIME IV SCH ×2 (10:05→20:57)
[2016-04-29] MEDS: DULoxetine 30 mg DR Capsule PO SCH ×2 (10:08→20:59)
[2016-04-29] MEDS: levoFLOXacin 750 mg Tablet PO SCH (10:09)
--- NOTE | 2016-04-29 13:36 | NUR ---
Social Work: Continued d/c planning Data: Pt is on day 5 of hospitalization. EMR reviewed. Pt discussed in rounds. MD states pt could possibly d/c today depending on if SNF can accommodate her IVABX. HIDES AND SKINS COLORER notified [facility] of possible d/c today. HIDES AND SKINS COLORER spoke with Resident this afternoon who states pt will not d/c today. HIDES AND SKINS COLORER notified [facility] and requested a call back regarding if they can accommodate her IVABX when she is ready to go. HIDES AND SKINS COLORER awaiting phone call back. HIDES AND SKINS COLORER will continue to follow. Assessment: Pt who is independent at baseline. Plan: Pt will d/c to [facility] when medically stable. [facility] has also accepted and is second choice. HIDES AND SKINS COLORER requested a call back from [facility] regarding if they can accommodate her IVABX when she is ready to go. HIDES AND SKINS COLORER awaiting phone call back. HIDES AND SKINS COLORER will continue to follow. JESU Tomlinson Addendum: 04/29/16 at 1429 by RAFFAELE OLIVER [facility] patrice accommodate her IVABX. HIDES AND SKINS COLORER notified . JESU Tomlinson
--- NOTE | 2016-04-29 18:11 | NUR ---
Pain/Rectal Prolapse: Patient complains of rectal pain 8-9/10 on pain scale throughout day. IV Dilaudid and Oxycodone administered as needed for pain. On reassessment, patient states pain "feels better", but when asked to give number value she states 8/10. Rectal prolapse protruding this am at time of assessment. Dark red, mucous covered. On reassessment this afternoon, no prolapse visible. MD aware.
--- NOTE | 2016-04-29 20:19 | PCM.PNMED ---
Subjective Date of Service Apr 29, 2016 Subjective Denisse Villegas is a 70 year old female with recent Uterine surgery, Hypertension, Stroke who presents to [facility] emergency department accompanied by her due to low blood pressure. Found to have UTI. Today patient states that she is having less pain in her rectum. Overnight, the nurses were unable to reduce the rectum. She wants to make sure that she is on a good bowel regimen here in the hospital like she is at home and would like to have fiber started for bulk and softness. Denies chest pain, headache, calf tenderness. She is eating and standing. Exam Vital Signs Vital Sign - Last Date Time Temp Pulse Resp B/P Pulse Ox O2 Delivery O2 Flow Rate FiO2 04/29/16 17:20 36.4 86 22 102/66 95 Room Air Intake and Output 04/28/16 04/28/16 04/29/16 Cumulative From/Thru 15:00 23:00 07:00 04/24/16 15:53 - 04/29/16 05:56 Intake Total 2341 ml 300 ml 93998 ml Output Total 1400 ml 1200 ml 14198 ml Balance 941 ml -900 ml -1065 ml Intake Oral 1976 ml 300 ml 7432 ml IV Total 365 ml 4878 ml Output Urine Total 1400 ml 1200 ml 76788 ml # Bowel Movements 2 1 9 Exam General: Alert, Oriented x2, Cooperative, lying in bed in no acute distress Eyes: PERRLA, Scleral Anicteric Mouth: Mucous Membranes Moist/[place] Neck: Supple, no thyromegaly Chest & Lungs: Clear to auscultation & percussion, No adventitious breath sounds, no crackles, no wheeze Cardiovascular: Normal S1, Normal S2, No Murmurs/Rubs/Gallops, Regular Rate/ Rhythm, (No JVD, no peripheral edema) Pulses: Radial (present and equal), Dorsalis Pedi (present and equal) GI: Soft, Non-tender, Non-distended, Normoactive bowel tones. Did not examine rectum today because was not prolapsed Musculoskeletal: No swollen or erythematous joints Extremities: No edema, no cyanosis, no clubbing. Skin: No rashes. Warm and dry, no erythematous areas Neurological: Grossly neurologically intact, Normal Speech, Sensation Intact IVs and Medications Medications Reviewed: Medications were reviewed in detail Lab and Diagnostics Result Diagram: 04/29/16 0525 04/29/16 0525 Microbiology Microbiology 04/24/16 Blood Culture - Preliminary, Resulted No growth at 2 days; culture examined... 04/24/16 Urine Culture - Final, Complete Pseudomonas Aeruginosa X-Rays, CTs and MRIs CT ABDOMEN AND PELVIS WITH CONTRAST 04/24 IMPRESSION: Overall, no acute abnormality identified. Circumferential rectal wall thickening which could be inflammatory, infectious or related to rectal malignancy. Please correlate clinically, and if needed endoscopy. Adjacent perianal soft tissue swelling/thickening. Appendix not visualized however no suspicious right lower quadrant inflammatory change. Mild circumferential bladder wall thickening, nonspecific. Dictated by: Wilfred Lopez M.D. on 04/24/2016 at 19:26 Approved by: Wilfred Lopez M.D. on 04/24/2016 at 19:34 X-RAY CHEST ONE VIEW, PORTABLE 04/24 IMPRESSION: No acute disease Dictated by: Wilfred Lopez M.D. on 04/24/2016 at 18:45 Approved by: Wilfred Lopez M.D. on 04/24/2016 at 18:46 04/25/16 Echocardiogram Report Interpretation Summary 1) Normal left ventricular thickness, size, wall motion, and systolic function (EF 60-65%). 2) Normal right ventricular size and function. 3) No significant valvular abnormalities. 4) No prior Echo available for comparison. Reading Physician:11:33 AM Assessment & Plan Denisse Villegas is a 70 year old female with recent Uterine surgery, Hypertension, Stroke who presents to [facility] emergency department accompanied by her due to low blood pressure. Found to have UTI. 1. Urinary tract infection, Pseudomonias. Present on admission, acute - Patient is on cefepime and levofloxacin 04/28/16 per sensitivities. - Expect her to need IV antibiotics for several days - Infectious disease doctor [place]. Will consider consulting him when he returns. 2. Rectal Prolapse, present on admission Chronic - NO evidence of ischemia from Dr Multani who said poor candidate for any surgery at this time due to her recent abdominal surgery. Pt can follow up with him after hospitalization. - Dr. Raymond, General Surgeon agreed that no surgery at this time but follow up in the outpatient setting since there is no ischemia present - Pain has improved quite a bit with the treatment of the UTI. - Discharge with stool softener and fiber - Spent time with nurse teaching patient and about the mechanical aspects of the prolapse and how to reduce it and tape it. 3. Hypotension. Acute on Chronic. Present on admission, resolved Suspect likely secondary to Hypovolemia given response to IV fluid resuscitations. Adrenal Insufficiency could also be considered. NO evidence of Sepsis - holding Metoprolol and Lisinopril and her blood pressures have normalized - IV fluid boluses as needed - encouraged increasing fluid intake at home. 4. Acute Elevated troponin. Present on admission, resolved Likely due to demand ischemia due to hypotension. - complete echo 04/25/16 was unremarkable (see report above) - Repeat troponins x2 negative - Aspirin 4. Acute kidney injury, present on admission. Resolved - Likely hypovolemia - Acetaminophen as needed for mild pain/fever/headache - Bowel regimen as needed - Antiemetic as needed Expect discharge 1-2 days to SNF with IV antibiotics VTE Prophylaxis: Sub-Q Heparin (Unfractionated) VTE Mechanical Devices: Intermittant Pneumatic CD Resuscitation Status: CPR: Attempt Resuscitation Attending Statement The patient was seen and examined together with Dr. Hernandez on 04/29/16 and I have added additional information to the note above. Meggan Hernandez DO Apr 29, 2016 20:19 Lacie Corbett DO Apr 30, 2016 15:29
[2016-04-30] VITALS (7 sets, daily range): BP systolic 98–116; BP diastolic 56–72; PULSE 80–95; RESP 16–20; O2SAT 95–97
[2016-04-30] MEDS: Heparin 5,000 Unit/mL Inj SUBQ SCH ×3 (00:53→16:45)
[2016-04-30 07:23] LABS: BASOPHILS % (AUTO) 0.9 % (0-3); EOSINOPHILS % (AUTO) 7.6 % (0-5); MONOCYTES % (AUTO) 10.9 % (4-12); Mean Corpuscular Hemoglobin 29.4 pg (27.0-35.0); Mean Corpuscular Volume 91.8 fL (81-100); NEUTROPHILS % (AUTO) 53.2 % (40-74); Platelet Count 382 bil/L (150-400)
[2016-04-30] MEDS: CEFEPIME IV SCH ×2 (08:49→20:05)
[2016-04-30] MEDS: DEXTROSE 5% IV SCH ×2 (08:49→20:05)
[2016-04-30] MEDS: DULoxetine 30 mg DR Capsule PO SCH ×2 (08:56→20:05)
[2016-04-30] MEDS: levoFLOXacin 750 mg Tablet PO SCH (08:56)
--- NOTE | 2016-04-30 09:10 | NUR ---
ELLEN signed JESU Tomlinson
--- NOTE | 2016-04-30 10:33 | NUR ---
Social Work: Continued d/c planning Data: Pt is on day 6 of hospitalization. EMR reviewed. Pt discussed in rounds. states pt will remain at hospital until IVABX are complete Addendum: 04/30/16 at 1036 by RAFFAELE OLIVER SS Social Work: Continued d/c planning Data: Pt is on day 6 of hospitalization. EMR reviewed. Pt discussed in rounds. MD states pt will remain at hospital until IVABX are complete, which will take 2-3 more days. [employer] notified SNF. [employer] met with pt at bedside, she states her first preference is now [facility] and second is [facility]. [employer] will continue to follow. Assessment: Pt who is independent at baseline. Plan: Pt will d/c to SNF when medically stable, pt states her first preference is now [facility] and second is [facility]. Both have accepted pt. [employer] will continue to follow. JESU Tomlinson
[2016-04-30 11:18] LABS: APPEARANCE,URINE HAZY (CLEAR,HAZY); COLOR,URINE STRAW (YELLOW); OCCULT BLOOD,URINE NEGATIVE (NEGATIVE)
[2016-04-30 11:19] LABS: UROBILINOGEN,URINE NORMAL (NORMAL)
[2016-04-30] MEDS ORDERED: HYDROcodone-APAP 5-325 mg Tablet PO PRN (12:05)
--- NOTE | 2016-04-30 15:37 | PCM.PNMED ---
Subjective Date of Service Apr 30, 2016 Subjective Patient was examined at bedside today. Patient denies any chest pain, shortness of breath, nausea, vomiting, diarrhea. Exam Vital Signs Vital Sign - Last Date Time Temp Pulse Resp B/P Pulse Ox O2 Delivery O2 Flow Rate FiO2 04/30/16 10:32 36.8 94 18 102/66 97 Room Air Intake and Output 04/29/16 04/29/16 04/30/16 Cumulative From/Thru 15:00 23:00 07:00 04/24/16 15:53 - 04/30/16 06:33 Intake Total 967 ml 200 ml 46444 ml Output Total 600 ml 2000 ml 20250 ml Balance 367 ml -1800 ml -2498 ml Intake Oral 880 ml 200 ml 8512 ml IV Total 87 ml 4965 ml Output Urine Total 600 ml 2000 ml 04415 ml # Bowel Movements 9 Exam Physical Exam: GEN: Patient was awake, alert, responding appropriately to questions HEENT: PERRLA, EOMI, Neck soft supple, trachea midline, nomocephalic/atraumatic CV: +S1/S2, RRR, no murmurs auscultated Respiratory: CTAB, no wheezes, rales, rhonchi GI: +bowel sounds x4, soft, compressible, non TTP EXT: no c/c/e Neuro: CN II-XII grossly intact Psych: mood and affect were appropriate IVs and Medications Medications Reviewed: Medications were reviewed in detail Lab and Diagnostics Result Diagram: 04/30/16 0700 04/29/16 0525 Microbiology Microbiology 04/24/16 Blood Culture - Preliminary, Resulted No growth at 2 days; culture examined... 04/24/16 Urine Culture - Final, Complete Pseudomonas Aeruginosa X-Rays, CTs and MRIs CT ABDOMEN AND PELVIS WITH CONTRAST 04/24 IMPRESSION: Overall, no acute abnormality identified. Circumferential rectal wall thickening which could be inflammatory, infectious or related to rectal malignancy. Please correlate clinically, and if needed endoscopy. Adjacent perianal soft tissue swelling/thickening. Appendix not visualized however no suspicious right lower quadrant inflammatory change. Mild circumferential bladder wall thickening, nonspecific. Dictated by: Wilfred Lopez M.D. on 04/24/2016 at 19:26 Approved by: Wilfred Lopez M.D. on 04/24/2016 at 19:34 X-RAY CHEST ONE VIEW, PORTABLE 04/24 IMPRESSION: No acute disease Dictated by: Wilfred Lopez M.D. on 04/24/2016 at 18:45 Approved by: Wilfred Lopez M.D. on 04/24/2016 at 18:46 04/25/16 Echocardiogram Report Interpretation Summary 1) Normal left ventricular thickness, size, wall motion, and systolic function (EF 60-65%). 2) Normal right ventricular size and function. 3) No significant valvular abnormalities. 4) No prior Echo available for comparison. Reading Physician:11:33 AM Assessment & Plan Denisse Villegas is a 70 year old female with recent Uterine surgery, Hypertension, Stroke who presents to [facility] emergency department accompanied by her due to low blood pressure. Found to have UTI. 1. Urinary tract infection, Pseudomonias. Present on admission, acute - Patient is on cefepime and levofloxacin 04/28/16 per sensitivities. - Expect her to need IV antibiotics for several days - Infectious disease doctor currently out of the country. Will consider consulting him when he returns. 2. Rectal Prolapse, present on admission Chronic - NO evidence of ischemia from Dr Multani who said poor candidate for any surgery at this time due to her recent abdominal surgery. Pt can follow up with him after hospitalization. - Dr. Raymond, General Surgeon agreed that no surgery at this time but follow up in the outpatient setting since there is no ischemia present - Pain has improved quite a bit with the treatment of the UTI. - Discharge with stool softener and fiber - Spent time with nurse teaching patient and about the mechanical aspects of the prolapse and how to reduce it and tape it. 3. Hypotension. Acute on Chronic. Present on admission, resolved Suspect likely secondary to Hypovolemia given response to IV fluid resuscitations. Adrenal Insufficiency could also be considered. NO evidence of Sepsis - holding Metoprolol and Lisinopril and her blood pressures have normalized - IV fluid boluses as needed - encouraged increasing fluid intake at home. 4. Acute Elevated troponin. Present on admission, resolved Likely due to demand ischemia due to hypotension. - complete echo 04/25/16 was unremarkable (see report above) - Repeat troponins x2 negative - Aspirin 4. Acute kidney injury, present on admission. Resolved - Likely hypovolemia - Acetaminophen as needed for mild pain/fever/headache - Bowel regimen as needed - Antiemetic as needed Disposition: Patient will need to finish out a full 7 day course of antibiotics for the pseudomonas infection prior to discharge. Today is day 4 out of 7. The patient causally complains of her rectal prolapse and states that it is painful however I think that this is more awkward sensation/timidity with having to constantly replace her rectal prolapse. It was explained to the patient that she needs to try and reduce it herself every time he comes out. It was also explained to the patient that sometimes it may spontaneously regress back to its normal position. The patient is encouraged to walk, sit for all of her meals, and practice reducing her own rectal prolapse. This has been difficult for the patient as she has a previous stroke with left hemiparesis. Nursing was encouraged to do minimal assist with the patient but to use lidocaine to the area when reducing the prolapse to help with the discomfort/awkward feeling. The patient and her both want a surgical procedure in order to reduce the prolapse permanently however it was explained to both of them then neurosurgeon is going to perform this surgery until her infection is complete and her health is stabilized. It was also explained to the patient by myself and the surgeons that this particular procedure has a lot of complications associated with it and may or may not be successful for the patient. At this time and is encouraged for them to continue to manually reduce the prolapse and as long as the rectum is red and soft and not black and restricted then everything is stable in this surgery is not necessary at this time. Once the patient's course of antibiotics is complete she should be related to discharged back to SNF. VTE Prophylaxis: Sub-Q Heparin (Unfractionated) VTE Mechanical Devices: Intermittant Pneumatic CD Resuscitation Status: CPR: Attempt Resuscitation Lacie Corbett DO Apr 30, 2016 15:37
--- NOTE | 2016-04-30 18:31 | NUR ---
Activity: Patient up to BSC and then to chair for breakfast. Sat in chair for approx 2hrs, then requested to go back to bed. Refused to get up to chair for additional meals.
[2016-05-01] MEDS: Heparin 5,000 Unit/mL Inj SUBQ SCH ×2 (00:26→09:13)
[2016-05-01 04:50] VITALS: BP 109/66; PULSE 74; RESP 16; O2SAT 99
[2016-05-01 07:12] LABS: Mean Corpuscular Hemoglobin 28.8 pg (27.0-35.0); Mean Corpuscular Volume 90.9 fL (81-100)
[2016-05-01 08:24] VITALS: BP 105/59; PULSE 61; RESP 18; O2SAT 99
[2016-05-01] MEDS: levoFLOXacin 750 mg Tablet PO SCH (09:09)
[2016-05-01] MEDS: DEXTROSE 5% IV SCH (09:10)
[2016-05-01] MEDS: CEFEPIME IV SCH (09:10)
[2016-05-01] MEDS: DULoxetine 30 mg DR Capsule PO SCH (09:12)
[2016-05-01] MEDS: HYDROmorphone 1 mg/mL Inj IVPUSH PRN ×2 (09:13→14:49)
[2016-05-01] MEDS ORDERED: LEVO750T9 PO ×2 (13:36→13:38)
--- NOTE | 2016-05-01 13:49 | PCM.DIMED ---
Josefina Cabrera 05/01/16 1349: Discharge Instructions Date of Service May 01, 2016 Dates of Hospitalization Apr 24, 2016 at 20:51 Discharge Diagnosis Discharge Diagnosis 1. Urinary tract infection, Pseudomonas. Present on admission, acute, improved. 2. Rectal Prolapse, present on admission Chronic 3. Hypotension. Acute on Chronic. Present on admission, resolved 4. Acute Elevated troponin. Present on admission, resolved 4. Acute kidney injury, present on admission. Resolved Diet Heart Healthy Activity Limited until seen by PCP Call your provider Fever or Chills, Shortness of breath, Bleeding, Chest pain, Excessive diarrhea, Weakness (unilateral) Patient Instructions You are being transferred to [facility] for continued rehabilitation. For the bladder infection, continue antibiotics for 5 more days. Take levofloxacin 750 mg 1 tablet once daily in the morning for 5 days. Do not take lisinopril or metoprolol for now until you have your blood pressure checked by your primary care provider. Make sure to drink plenty of fluids. For the rectal prolapse, continue taking stool softeners and fiber and continue to reduce it. You can either followup with Dr. Multani as scheduled or followup again at [facility] with one of the colorectal surgeons, Dr. Chamberlain, that you have already seen Follow up with your primary care provider in 1 week. Follow-up Provider: Alejandra Hewitt PA-C, Benjamin P DO 05/02/16 0755: Discharge Instructions Attending's Statement Read and agree. Josefina Cabrera DO May 01, 2016 13:49 Kang Casey DO May 02, 2016 07:55
--- NOTE | 2016-05-01 13:57 | PCM.DC.MED ---
Discharge Summary Date of Service May 01, 2016 Dates of Hospitalization Date of Hospital Admission Apr 24, 2016 at 20:51 Date of Discharge: May 01, 2016 Providers: Admitting Physician: Rosendo Bradley MD Primary Care Physician: Alejandra Hewitt PA-C Attending Physician: Rosendo Bradley MD Diagnosis at Time of Discharge Diagnosis at Time of Discharge 1. Urinary tract infection, Pseudomonas. Present on admission, acute, improved. 2. Rectal Prolapse, present on admission Chronic 3. Hypotension. Acute on Chronic. Present on admission, resolved 4. Acute Elevated troponin. Present on admission, resolved 4. Acute kidney injury, present on admission. Resolved Procedures XRay, CTs & MRIs CT ABDOMEN AND PELVIS WITH CONTRAST 04/24 IMPRESSION: Overall, no acute abnormality identified. Circumferential rectal wall thickening which could be inflammatory, infectious or related to rectal malignancy. Please correlate clinically, and if needed endoscopy. Adjacent perianal soft tissue swelling/thickening. Appendix not visualized however no suspicious right lower quadrant inflammatory change. Mild circumferential bladder wall thickening, nonspecific. Dictated by: Wilfred Lopez M.D. on 04/24/2016 at 19:26 Approved by: Wilfred Lopez M.D. on 04/24/2016 at 19:34 X-RAY CHEST ONE VIEW, PORTABLE 04/24 IMPRESSION: No acute disease Dictated by: Wilfred Lopez M.D. on 04/24/2016 at 18:45 Approved by: Wilfred Lopez M.D. on 04/24/2016 at 18:46 04/25/16 Echocardiogram Report Interpretation Summary 1) Normal left ventricular thickness, size, wall motion, and systolic function (EF 60-65%). 2) Normal right ventricular size and function. 3) No significant valvular abnormalities. 4) No prior Echo available for comparison. Reading Physician:11:33 AM Brief History From the history and physical performed by Dr. Rosendo Bradley on 04/24/2016: Denisse Villegas is a 70 year old female with recent Uterine surgery, Hypertension, Stroke who presents to [facility] emergency department accompanied by her due to low blood pressure. Patient reports the onset since her surgery in February (admitted to [facility] for sepsis, and an abscess that developed at her Uterine surgery site earlier this month) Patient was seen by her surgeon, Dr. Multani, earlier today for rectal prolapse evaluation and referred to the ER due to hypotension. She also reports rectal pain, and transient shortness of breath earlier today, though she is unsure of time of onset and duration. She appears to be a vague historian. Patient denies chest pain, cough, fever, and chills. She reports she is compliant with her Metoprolol and Lisinopril. Case discussed with Dr Neymar Ba. BP improved with fluids but labs showed elevated troponin 0.014. EKG showed no ischemic changes. Cardiology were consulted who recommended trending troponin. Hospital Course Denisse Villegas is a 70 year old female with recent Uterine surgery, Hypertension, Stroke who presents to [facility] emergency department accompanied by her due to low blood pressure. Found to have UTI. 1. Urinary tract infection, Pseudomonas. Present on admission, acute - Patient was on cefepime and levofloxacin starting 04/28/16 per sensitivities. - Repeat urine culture 04/30/2016 shows no growth to date - Patient to complete a 10 day course of antibiotics. She will continue levofloxacin for 5 days after discharge. 2. Rectal Prolapse, present on admission Chronic - NO evidence of ischemia from Dr Multani who said poor candidate for any surgery at this time due to her recent abdominal surgery. Pt can follow up with him after hospitalization. - Dr. Raymond, General Surgeon agreed that no surgery at this time but follow up in the outpatient setting since there was no ischemia present - Pain has improved quite a bit with the treatment of the UTI. - Discharge with stool softener and fiber - There was time spent earlier in hospital course with nurse teaching patient and about the mechanical aspects of the prolapse and how to reduce it and tape it. 3. Hypotension. Acute on Chronic. Present on admission, resolved Suspect likely secondary to Hypovolemia given response to IV fluid resuscitations. Adrenal Insufficiency could also be considered. NO evidence of Sepsis - Hold Metoprolol and Lisinopril and her blood pressures have normalized and been re-evaluated as an outpatient. - Encouraged increasing fluid intake at home. 4. Acute Elevated troponin. Present on admission, resolved Likely due to demand ischemia due to hypotension. - complete echo 04/25/16 was unremarkable (see report above) - Repeat troponins x2 were negative 4. Acute kidney injury, present on admission. Resolved - Secondary to hypovolemia Exam Vital Signs (Last) Date Time Temp Pulse Resp B/P Pulse Ox O2 Delivery O2 Flow Rate FiO2 05/01/16 08:24 36.7 61 18 105/59 99 05/01/16 04:50 Room Air Exam GEN: Patient was awake, alert, responding appropriately to questions HEENT: PERRLA, EOMI, Neck soft supple, trachea midline, nomocephalic/atraumatic CV: Normal S1/S2, Regular rate and rhythm, no murmurs auscultated Respiratory: CTAB, no wheezes, rales, rhonchi GI: +bowel sounds x4, soft, compressible, non tender to palpation EXT: no cyanosis, clubbing, or edema Neuro: CN II-XII grossly intact Psych: mood and affect were appropriate Test 04/24/16 16:45 04/25/16 08:30 04/28/16 06:45 04/29/16 05:00 Hold Purple Top Tube Received (Received) Hold Blue Top Tube Received (Received) Lactic Acid Level 1.9mmol/L (0.4-2.0) Magnesium Level 2.2mg/dL (1.6-2.6) Hold [place] Top Tube Received (Received) Hold [place] Top Tube Received (Received) Troponin T < 0.010ug/L (0.0-0.011) Total Bilirubin 0.2mg/dL (0.0-1.2) Aspartate Amino Transf (AST/SGOT) 14U/L (0-50) Alanine Aminotransferase (ALT/SGPT) 10U/L (0-32) Alkaline Phosphatase 74U/L (25-165) Total Protein 5.5g/dL (6.4-8.4) Albumin 3.1g/dL (3.4-5.0) Procalcitonin 0.04ng/mL (0.00-0.08) Test 04/30/16 07:00 04/30/16 09:46 05/01/16 06:45 Neutrophils (%) (Auto) 53.2% (40-74) Lymphocytes (%) (Auto) 25.9% (14-46) Monocytes (%) (Auto) 10.9% (4-12) Eosinophils (%) (Auto) 7.6% (0-5) Basophils (%) (Auto) 0.9% (0-3) Urine Color Straw (YELLOW) Urine Appearance Hazy (CLEAR,HAZY) Urine pH 7.0 (5.0-8.0) Urine Specific [place] 1.014 (1.003-1.035) Urine Protein Tracemg/dL (NEG,TRACE) Urine Glucose (UA) Negativemg/dL (NEGATIVE) Urine Ketones Negativemg/dL (NEGATIVE) Urine Occult Blood Negative (NEGATIVE) Urine Nitrite Negative (NEGATIVE) Urine Bilirubin Negative (NEGATIVE) Urine Urobilinogen Normalmg/dL (NORMAL) Urine Leukocyte Esterase Small (NEGATIVE) Urine RBC 0-2/hpf (0-2) Urine WBC 6-10/hpf (0-5) Urine Epithelial Cells Occasional/hpf (NONE-MOD) Urine Crystals None seen (NONE SEEN) Urine Bacteria Few/hpf (NONE-FEW) Urine Hyaline Casts None/lpf (NONE) Urine Granular Casts None seen (NONE SEEN) Urine Waxy Casts None seen (NONE SEEN) Urine Red Blood Cell Casts None seen (NONE SEEN) Urine White Blood Cell Casts None seen (NONE SEEN) Urine Mucus None seen (None Seen) Urine Trichomonas None seen (NONE SEEN) Urine Yeast None (NONE SEEN) Urinalysis Comment None Urine Culture Reflexed Indicated White Blood Count 6.7th/mm3 (3.8-10.1) Red Blood Count 3.51mil/mm3 (3.90-5.20) Hemoglobin 10.1g/dL (12.0-15.6) Hematocrit 31.9% (35.0-46.0) Mean Corpuscular Volume 90.9fL (81-100) Mean Corpuscular Hemoglobin 28.8pg (27.0-35.0) Mean Corpuscular Hemoglobin Concent 31.7% (32.0-37.0) Red Cell Distribution Width 14.0% (12.3-15.4) Platelet Count 385bil/L (150-400) Sodium Level 140mEq/L (134-144) Potassium Level 3.7mEq/L (3.5-5.2) Chloride Level 106mEq/L (97-108) Carbon Dioxide Level 22mmol/L (18-29) Blood Urea Nitrogen 15mg/dL (8-27) Creatinine 0.85mg/dL (0.57-1.00) Estimat Glomerular Filtration Rate 95mL/min (>59) Glucose Level 102mg/dL (60-99) Calcium Level 8.3mg/dL (8.5-10.1) Microbiology Results Microbiology 04/24/16 Blood Culture - Preliminary, Resulted No growth at 2 days; culture examined... 04/24/16 Urine Culture - Final, Complete Pseudomonas Aeruginosa Discharge Medications Discharge Medications Amitriptyline (Amitriptyline) 25 Mg Tab 25-35 MG PO HS (Reported) May take an extra 10 mg on top of 25 mg for sleep Atorvastatin (Lipitor) 40 Mg Tablet 40 MG PO HS (Reported) Cholecalciferol (Vitamin D3) (Vitamin D3) 5,000 Unit Capsule 5,000 UNIT PO DAILY (Reported) Docusate Sodium (Docusate Sodium) 250 Mg Capsule 250 MG PO DAILY (Reported) Duloxetine (Cymbalta) 60 Mg Capsule.dr 60 MG PO BID (Reported) Estradiol (Estradiol) 0.5 Mg Tablet 0.5 MG DAILY (Reported) Glucosamine/MSM/Chondroitin A (Glucosamine Chondroit MSM Tab) 1 Each Tablet 1 EACH PO BID (Reported) L.acidoph & Paracasei,B.lactis (Probiotic) 10 Billion Cell Capsule 1 EACH PO DAILY (Reported) Levofloxacin (Levaquin) 750 Mg Tablet 750 MG PO DAILYAC Prescribed by: JOSEFINA CABRERA DO Multivits-Min/Iron/FA/Lutein (Centrum Silver Women Tablet) 8 Mg Iron-400 Mcg- 300 Mcg Tablet 1 EACH PO DAILY (Reported) Pregabalin (Lyrica) 150 Mg Capsule 150 MG PO BID (Reported) Sennosides (Senna) 8.6 Mg Tablet 8.6 MG PO BID (Reported) Topiramate (Topiramate) 100 Mg Tablet 150 MG PO BID (Reported) As needed Alprazolam (Alprazolam) 0.25 Mg Tablet 0.25 MG PO TID PRN PRN For Anxiety ( Reported) Hydrocodone-Acetaminophen 5-325 mg (Hydrocodone-Acetaminophen 5-325 mg) 1 Each Tablet 1-2 TABLET PO Q8H PRN PRN For Pain (Reported) Alternate with oxycodone for pain, do not exceed 4 GM Tylenol in 24 hrs Oxycodone (Roxicodone) 5 Mg Tablet 5-10 MG PO Q4H PRN PRN For Pain (Reported) Alternate with [place] to control pain while keeping Tylenol < 4000 mg/24 hrs Polyethylene Glycol 3350 (Polyethylene Glycol 3350) 17 Gm Powd.pack 17 GM PO DAILY PRN PRN For Constipation (Reported) Prochlorperazine Maleate (Prochlorperazine) 10 Mg Tablet 10 MG PO Q8 PRN PRN Headache (Reported) Tiotropium [place] (Spiriva) 18 Mcg Cap.w.dev 18 MCG IH DAILY PRN PRN For Shortness of Breath (Reported) Miscellaneous Medications Prasterone (Dhea)/Calcium Carb (Dhea 50 mg Tablet) 1 Each Tablet 4 EACH PO ( Reported) Followup Plan Discharge Diet: Heart Healthy Discharge Activity: Limited until seen by PCP Patient Instructions You are being transferred to [facility] for continued rehabilitation. For the bladder infection, continue antibiotics for 5 more days. Take levofloxacin 750 mg 1 tablet once daily in the morning for 5 days. Do not take lisinopril or metoprolol for now until you have your blood pressure checked by your primary care provider. Make sure to drink plenty of fluids. For the rectal prolapse, continue taking stool softeners and fiber and continue to reduce it. You can either followup with Dr. Multani as scheduled or followup again at [facility] with one of the colorectal surgeons, Dr. Chamberlain, that you have already seen Follow up with your primary care provider in 1 week. Follow-up Provider: Alejandra Hewitt PA-C Time spent 45 minutes Attending Statement I have seen and evaluated patient at bedside in addition to directly supervising care provided by resident physician. I agree with above documentation. Follow up out patient with surgery for possible elective procedure to correct recurrent rectal prolapse, following further rehabilitation at [facility]> Josefina Cabrera DO May 01, 2016 13:57 Kang Casey DO May 02, 2016 07:57
--- NOTE | 2016-05-01 15:13 | NUR ---
Social Work-discharge: data:EMR Reviewed. Pt is on day 7 of hospitalization for elevated troponin per H&P. Pt is medically stable for discharge today. PT continues to recommend SNF, pt ambulating 15ft. AWAIS confirmed with Elpidio at [facility] that they are ready to accept pt today. Elpidio confirmed that they can accept today and he arranged transport for 1530. AWAIS updated Pt and Benjie of discharge and transport arranged for 1530, both agreeable. AWAIS faxed orders to [facility] and created packet. RN,UC,pt/family, and [facility] all updated and agreeable to plan. Assessment:Pt who would benefit from SNF. Plan:Pt to discharge to [facility] today via cabulance at 1530. RN,UC,pt/family, and [facility] all updated and agreeable to plan. JESU Johnston
--- NOTE | 2016-05-01 16:00 | NUR ---
Discharge Pt discharged to [facility] in [place], IV D/Cd intact, VSS, No complains of increased pain. Family aware of transfer. [place] [facility] [place] bobtail driver from [facility] to be transported to the facility. Report called to Alia.
== END 2016-05-01 16:03 | DRG 690 ==
LOC: SED 15:39 → MPC 20:51 → OBSVTOIN 20:51 → INTOOBSV 20:51
PROVIDERS: ADMIT Hospitalist; ATTEND Hospitalist
DX: N39.0 Urinary tract infection, site not specified (principal); I24.8 Other forms of acute ischemic heart disease; N17.9 Acute kidney failure, unspecified; I69.854 Hemiplegia and hemiparesis following other cerebrovascular disease affecting left non-dominant side; I95.9 Hypotension, unspecified; E86.1 Hypovolemia; B96.5 Pseudomonas (aeruginosa) (mallei) (pseudomallei) as the cause of diseases classified elsewhere; K62.3 Rectal prolapse

== ENCOUNTER 2016-08-25 12:44 | Emergency (ER) | payer MEDICARE, OTHER ==
[~2016-08-25] VITALS: Ht 160 cm; Wt 85.5 kg
[~2016-08-25 12:44] MED LIST changes: +AMT25T PO; -AMT50T PO; -Aspirin-Expunged Drug, Do Not Renew! PO; +DOCU250C2 PO; -HYDR-3797 PO; +HYDR-4003 PO; +LEVO750T9 PO; -MULT-1018 PO; +MULT-1065 PO; +OXYC-474 PO; -OXYC5TAB72 PO; +POLY17PO2 PO; +PRAS1TAB2 PO; -PROP60CA2 PO; +SENN-133 PO; +TIOT18CA3 IH; -TOLT4CAP13 PO
[2016-08-25 12:50] VITALS: BP 107/56; PULSE 80; RESP 8; O2SAT 97
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
[2016-08-25 15:26] VITALS: BP 102/47; PULSE 76; RESP 16; O2SAT 96
--- NOTE | 2016-08-25 16:57 | DRSVH ---
PROCEDURE: US VEINOUS LEG DUPLEX UNILATERAL, LEFT INDICATIONS: r/o LLE DVT TECHNIQUE: Real-time imaging, as well as color and pulse Doppler interrogation, were performed of the lower extr emity deep veins from the inguinal ligament to the popliteal fossa. COMPARISON: None. FINDINGS: The deep veins are normally compressible, and free of intraluminal thrombus. Color and pu lse Doppler demonstrate normal phasic intraluminal flow. There is normal augmentation response to di stal compression maneuver. IMPRESSION: No deep venous thrombosis identified within the left lower extremity. Dictated by: Mitch ASH Interpreted: Maureen Weir MD on 08/25/2016 at 15:16 Approved by: Maureen Weir M.D. on 08/25/2016 at 16:55
== END 2016-08-25 15:28 | disposition home or self-care (01) ==
LOC: SED 12:44
DX: M79.89 Other specified soft tissue disorders (principal); S80.12XA Contusion of left lower leg, initial encounter; W18.30XA Fall on same level, unspecified, initial encounter; Y93.9 Activity, unspecified; Y92.091 Bathroom in other non-institutional residence as the place of occurrence of the external cause; Z86.73 Personal history of transient ischemic attack (TIA), and cerebral infarction without residual deficits; Z87.891 Personal history of nicotine dependence; Z90.710 Acquired absence of both cervix and uterus
CPT/HCPCS: 93970; 96372; 99284; G0463; J1885